=== PATIENT | female | born 1940 | race Caucasian/White ===

== ENCOUNTER 2025-03-18 02:15 | Emergency (ER) | payer MEDICARE, BC ==
[~2025-03-18] VITALS: Ht 157.5 cm; Wt 60.0 kg
[2025-03-18] MEDS ORDERED: AMLODIPINE BESY10 MG PO (02:33)
[2025-03-18] MEDS ORDERED: LOSARTAN POTASS25 MG PO (02:33)
[2025-03-18] MEDS ORDERED: LOVASTATIN40 MG PO (02:33)
[2025-03-18] MEDS ORDERED: HYDROXYCHLOROQ200 MG PO (02:34)
[2025-03-18] MEDS ORDERED: ALENDRONATE SOD70 MG PO (02:34)
[2025-03-18] MEDS ORDERED: METHOTREXATE2.5 MG PO (02:34)
[2025-03-18] MEDS ORDERED: POTASSIUM CHLO10 MEQ PO (02:34)
[2025-03-18] MEDS ORDERED: FOLIC ACID1 MG PO (02:34)
[2025-03-18] MEDS ORDERED: DEXAMETHASONE SOD PHOS 10 MG/ML VIAL IV ONE (02:45)
[2025-03-18 02:52] LABS: BASOPHILS 0.4 % (0.1-1.2); EOSINOPHILS 0.6 % (0.7-5.8); LYMPHOCYTES 4.9 % (19.3-51.7); MCH 30.7 PG (25.6-32.2); MCHC 33.0 g/dL (32.2-35.5); MCV 93.1 fL (79.4-94.8); MONOCYTES 4.9 % (4.7-12.5); NEUTROPHILS 88.8 % (34.0-71.1); RBC 4.23 M/uL (3.93-5.22)
[2025-03-18 03:07] LABS: ALT (SGPT) 14.0 U/L (14-59); AST (SGOT) 25.0 U/L (15-37); GLOMERULAR FILTRATION RATE,EST 34.0 mL/min (>60); PROTEIN, TOTAL 7.3 g/dL (6.4-8.2); UREA NITROGEN 20.0 mg/dL (7-18)
[2025-03-18] MEDS ORDERED: POTASSIUM CHLORIDE 10 MEQ TABCR PO ONE (03:15)
[2025-03-18] MEDS ORDERED: METHYLPREDNISOLO4 M1 PO (03:28)
[2025-03-18] MEDS ORDERED: LIDODERM1 EACH TOP ×2 (03:28→03:29)
[2025-03-18] MEDS ORDERED: LIDOCAINE HCL 4% 1 EACH PATCH TD ONE (03:30)
[2025-03-18] MEDS ORDERED: CYCLOBENZAPRINE HCL 10 MG HOME.PACK PO ONE (03:30)
[2025-03-18] MEDS ORDERED: ONDANSETRON 4 MG HOME.PACK SL ONE (03:30)
[2025-03-18 03:44] VITALS: BP 115/94
== END 2025-03-18 03:44 | disposition home or self-care (01) ==
LOC: ED 02:15
PROVIDERS: Internal Medicine
DX: S16.1XXA Strain of muscle, fascia and tendon at neck level, initial encounter (principal); I10 Essential (primary) hypertension; Z88.5 Allergy status to narcotic agent; Z79.899 Other long term (current) drug therapy; X58.XXXA Exposure to other specified factors, initial encounter
CPT/HCPCS: 36415; 80053; 85025; 86140; 96374; 96375; 99283-25; A9270; J1100; J2405

== ENCOUNTER 2025-03-25 18:03 | Emergency (ER) | payer MEDICARE, BC ==
[~2025-03-25] VITALS: Ht 157.5 cm; Wt 60.0 kg
[~2025-03-25 18:03] MED LIST: ALENDRONATE SOD70 MG PO; AMLODIPINE BESY10 MG PO; FOLIC ACID1 MG PO; HYDROXYCHLOROQ200 MG PO; LIDODERM1 EACH TOP; LOSARTAN POTASS25 MG PO; LOVASTATIN40 MG PO; METHOTREXATE2.5 MG PO; METHYLPREDNISOLO4 M1 PO; POTASSIUM CHLO10 MEQ PO
--- OUTSIDE RECORDS SUMMARY | 2025-03-25 18:11 | XMS ---
PreManage Notification: BALAJI CLARK Security Mine Foreman Events No recent Security Events currently on file CRITERIA MET - [facility] - 2 Visits in 30 Days CARE PROVIDERS There are no care providers on record at this time. Vanessa has no Care Guidelines for this patient. Aakash VISIT COUNT (12 MO.) 2 [facility] TOTAL 2 NOTE: Visits indicate total known visits. ED/C VISIT TRACKING (12 MO.) [facility] [place] [facility] COMPLAINT: - NAUSEA, PAIN IN SHOULDER 03/18/2025 02:16 [facility] [place] TYPE: Emergency COMPLAINT: - SHOULDER PAIN DIAGNOSES: - Allergy status to narcotic agent - Cervicalgia - Essential (primary) hypertension - Exposure to other specified factors, initial encounter - Other equipment operator intermodal yard (current) drug therapy - Strain of muscle, fascia and tendon at neck level, initial encounter INPATIENT VISIT TRACKING (12 MO.) No inpatient visits to display in this time frame [email or web address]
[2025-03-25] MEDS ORDERED: ONDANSETRON 4 MG TAB ODT SL ONE (19:15)
[2025-03-25] MEDS ORDERED: MORPHINE SULFATE 4 MG/ML VIAL IV ONE (20:15)
[2025-03-25 20:45] LABS: BASOPHILS 0.3 % (0.1-1.2); EOSINOPHILS 1.1 % (0.7-5.8); LYMPHOCYTES 9.7 % (19.3-51.7); MCH 30.4 PG (25.6-32.2); MCHC 33.5 g/dL (32.2-35.5); MCV 90.8 fL (79.4-94.8); MONOCYTES 5.8 % (4.7-12.5); NEUTROPHILS 82.6 % (34.0-71.1); RBC 4.01 M/uL (3.93-5.22)
[2025-03-25 21:01] LABS: ALT (SGPT) 19.0 U/L (14-59); AST (SGOT) 13.0 U/L (15-37); GLOMERULAR FILTRATION RATE,EST 30.0 mL/min (>60); PROTEIN, TOTAL 7.0 g/dL (6.4-8.2); UREA NITROGEN 34.0 mg/dL (7-18)
[2025-03-25] MEDS ORDERED: TRAMADOL HCL50 MG PO (21:23)
[2025-03-25] MEDS ORDERED: ONDANSETRON ODT4 MG PO (21:23)
[2025-03-25] MEDS ORDERED: CELEBREX100 MG PO (21:23)
[2025-03-25] MEDS ORDERED: TRAMADOL HCL 50 MG HOME.PACK PO ONE (21:30)
[2025-03-25] MEDS ORDERED: ONDANSETRON 4 MG HOME.PACK SL ONE (21:30)
[2025-03-25 21:40] VITALS: BP 107/67
== END 2025-03-25 21:40 | disposition home or self-care (01) ==
LOC: ED 18:03
PROVIDERS: Family Medicine
DX: M75.101 Unspecified rotator cuff tear or rupture of right shoulder, not specified as traumatic (principal); M19.011 Primary osteoarthritis, right shoulder; R11.10 Vomiting, unspecified; E78.00 Pure hypercholesterolemia, unspecified; I10 Essential (primary) hypertension; Z79.899 Other long term (current) drug therapy; Z88.5 Allergy status to narcotic agent
CPT/HCPCS: 36415; 73030; 80053; 85025; 96374; 99283-25; A9270; J2270

== ENCOUNTER 2025-03-28 03:13 | Emergency (ER) | payer MEDICARE, BC ==
[~2025-03-28] VITALS: Ht 157.5 cm; Wt 63.0 kg
[~2025-03-28 03:13] MED LIST changes: +CELEBREX100 MG PO; +ONDANSETRON ODT4 MG PO; +TRAMADOL HCL50 MG PO
--- OUTSIDE RECORDS SUMMARY | 2025-03-28 03:21 | XMS ---
PreManage Notification: BALAJI CLARK Security Electrical Cad Designer Events No recent Security Events currently on file CRITERIA MET - [facility] - 2 Visits in 30 Days CARE PROVIDERS There are no care providers on record at this time. Vanessa has no Care Guidelines for this patient. [facility] MO[facility] NOTE: Visits indicate total known visits. ED/C VISIT TRACKING (12 MO.) 03/28/2025 03:15 [facility] [place] TYPE: Emergency COMPLAINT: - SHOULDER ISSUE 03/25/2025 18:05 [facility] [place] TYPE: Emergency COMPLAINT: - NAUSEA, PAIN IN SHOULDER 03/18/2025 02:16 [facility] [place] TYPE: Emergency COMPLAINT: - SHOULDER PAIN DIAGNOSES: - Allergy status to narcotic agent - Cervicalgia - Essential (primary) hypertension - Exposure to other specified factors, initial encounter - Other prison (current) drug therapy - Strain of muscle, fascia and tendon at neck level, initial encounter INPATIENT VISIT TRACKING (12 MO.) No inpatient visits to display in this time frame [email or web address]
[2025-03-28] MEDS ORDERED: methylPREDNISolone 4 MG HOME.PACK PO ONE (05:15)
[2025-03-28] MEDS ORDERED: HYDROCODONE/ACETA 5/325 TAB PO ONE (05:15)
[2025-03-28] MEDS ORDERED: HYDROCODONE BIT/ACETAMINOPHEN 5/325 MG 1 TAB HOME.PACK PO PRN (05:15)
[2025-03-28] MEDS ORDERED: HYDROCODON-ACE1 EA10 PO (05:19)
[2025-03-28 05:48] VITALS: BP 116/68
== END 2025-03-28 06:00 | disposition home or self-care (01) ==
LOC: ED 03:13
DX: M75.31 Calcific tendinitis of right shoulder (principal); I10 Essential (primary) hypertension; E78.00 Pure hypercholesterolemia, unspecified; Z79.899 Other long term (current) drug therapy; Z88.5 Allergy status to narcotic agent
CPT/HCPCS: 99282; A9270

== ENCOUNTER 2025-03-31 13:09 | Inpatient (IN) | payer MEDICARE, BC ==
[~2025-03-31] VITALS: Ht 157.5 cm; Wt 61.2 kg
[~2025-03-31 13:09] MED LIST changes: +HYDROCODON-ACE1 EA10 PO
--- OUTSIDE RECORDS SUMMARY | 2025-03-31 13:15 | XMS ---
PreManage Notification: BALAJI CLARK Security Biology Intern Events No recent Security Events currently on file CRITERIA MET - [facility] - 2 Visits in 30 Days CARE PROVIDERS There are no care providers on record at this time. Vanessa has no Care Guidelines for this patient. Aakash VISIT COUNT (12 MO.) 4 [facility] [place] [facility] TOTAL 4 NOTE: Visits indicate total known visits. ED/C VISIT TRACKING (12 MO.) 03/31/2025 13:[address] [facility] [place] TYPE: Emergency COMPLAINT: - WEAKNESS 03/28/2025 03:15 [facility] [place] TYPE: Emergency COMPLAINT: - SHOULDER ISSUE DIAGNOSES: - Allergy status to narcotic agent - Calcific tendinitis of right shoulder - Essential (primary) hypertension - Other half-way (current) drug therapy - Pain in right shoulder - Pure hypercholesterolemia, unspecified 03/25/2025 18:05 [facility] [place] TYPE: Emergency COMPLAINT: - NAUSEA, PAIN IN SHOULDER DIAGNOSES: - Allergy status to narcotic agent - Essential (primary) hypertension - Other middle or intermediate school principal (current) drug therapy - Pain in right shoulder - Primary osteoarthritis, right shoulder - Pure hypercholesterolemia, unspecified - Unspecified rotator cuff tear or rupture of right shoulder, not specified as traumatic - Vomiting, unspecified 03/18/2025 02:16 [facility] [place] TYPE: Emergency COMPLAINT: - SHOULDER PAIN DIAGNOSES: - Allergy status to narcotic agent - Cervicalgia - Essential (primary) hypertension - Exposure to other specified factors, initial encounter - Other middle or intermediate school principal (current) drug therapy - Strain of muscle, fascia and tendon at neck level, initial encounter INPATIENT VISIT TRACKING (12 MO.) No inpatient visits to display in this time frame [email or web address]
[2025-03-31] MEDS ORDERED: SODIUM CHLORIDE 0.9% 500 ML IV PRN (13:30)
[2025-03-31 13:39] LABS: BASOPHILS 0.1 % (0.1-1.2); EOSINOPHILS 0 % (0.7-5.8); LYMPHOCYTES 3.0 % (19.3-51.7); MCH 30.5 PG (25.6-32.2); MCHC 31.4 g/dL (32.2-35.5); MCV 97.0 fL (79.4-94.8); MONOCYTES 4.1 % (4.7-12.5); NEUTROPHILS 92.0 % (34.0-71.1); RBC 2.00 M/uL (3.93-5.22)
[2025-03-31 13:58] LABS: ALT (SGPT) 16.0 U/L (14-59); AST (SGOT) 17.0 U/L (15-37); GLOMERULAR FILTRATION RATE,EST 38.0 mL/min (>60); PROTEIN, TOTAL 5.1 g/dL (6.4-8.2); UREA NITROGEN 58.0 mg/dL (7-18)
[2025-03-31 13:59] LABS: INR 1.12 (0.80-1.30); PROTIME 13.7 Sec (11.2-14.2)
[2025-03-31] MEDS ORDERED: PANTOPRAZOLE SODIUM 40 MG/10 ML VIAL IV ONE (14:00)
[2025-03-31 14:29] LABS: ABO A; ANTIBODY SCREEN NEGATIVE; RH POSITIVE
[2025-03-31 15:19] LABS: ABO A; RH POSITIVE
[2025-03-31 15:20] LABS: IS CROSSMATCH COMPATIBLE
[2025-03-31] MEDS ORDERED: LORazepam 2 MG/ML VIAL IV ONE (16:15)
[2025-03-31] MEDS ORDERED: ACETAMINOPHEN 325 MG TAB PO PRN (17:00)
[2025-03-31] MEDS ORDERED: LACTATED RINGER'S 1,000 ML IV SCH (17:00)
--- NOTE | 2025-03-31 18:00 | NUR ---
REPORT RECIEVED FROM OLEGARIO RUSS IN THE ER. PATIENT TRANSPORTED TO ROOM 109 BY THIS RN. PATIENT DAUGHTER, DARLEEN AT BEDSIDE. DARLEEN TOOK PATIENT'S BELONGINGS HOME WITH HER. PATIENT HAS HER CELL PHONE AND CELL PHONE DAY TRADER. PATIENT TRANSFERED SELF FROM STRETCHER TO HOSPITAL BED BY SLIDING OVER.
[2025-03-31 18:08] VITALS: BP 145/63
--- NOTE | 2025-03-31 18:30 | NUR ---
BLOOD BAG 2 OF 4 STARTED AT THIS TIME IN PATIENT RAC IV. BLOOD BAG VERIFIED WITH OLEGARIO MCMILLANDRUM DYEING MACHINE OPERATOR. 1845 15 MIN VITALS SIGNS TAKEN AND ARE STABLE. NO SIGNS OR SYMPTOMS OF REACTION. ALL DOCUMENTED UNDER "BLOOD ADMINISTRATION". BEFORE LEAVING THE ROOM, THIS RN EDUCATED PATIENT TO NOTIFY STAFF IF PATIENT STARTS EXPERIENCING SOB, ITCHY, NEW PAIN, OR CHILL. PATIENT GAVE VERBAL UNDERSTANDING. PATIENT WITHOUT FURTHER NEEDS AT THIS TIME. CALL LIGHT AND PERSONAL BELONGINGS ARE WITHIN REACH.
[2025-03-31 19:30] VITALS: BP 121/87
[2025-03-31 20:37] VITALS: BP 120/59
--- NOTE | 2025-03-31 20:52 | NUR ---
PATIENT IN BED, EYES OPEN, CHEST RISE EQUAL AND UNALBORED. ASSESSMENT COMPLETED. PATIENT DENIES CONCERNS AT THIS TIME. IV FLUIDS RUNNING WITHOUT COMPLICATION. PATIENT BELONGINGS AND CALL COURTNEY GRIDER, SCHEDULED MEDICATIONS ADMINISTERED, PATIENT TOLERATED WELL.
[2025-03-31 20:58] VITALS: BP 120/59
[2025-03-31] MEDS ORDERED: PANTOPRAZOLE SODIUM 40 MG/10 ML VIAL IV SCH (21:00)
[2025-03-31] MEDS ORDERED: LIDOCAINE HCL 4% 1 EACH PATCH TD ONE (21:15)
[2025-03-31] MEDS ORDERED: MORPHINE SULFATE 4 MG/ML VIAL IV PRN (21:15)
[2025-03-31 22:08] LABS: BASOPHILS 0.1 % (0.1-1.2); EOSINOPHILS 0.2 % (0.7-5.8); LYMPHOCYTES 4.5 % (19.3-51.7); MCH 30.1 PG (25.6-32.2); MCHC 33.3 g/dL (32.2-35.5); MCV 90.2 fL (79.4-94.8); MONOCYTES 3.2 % (4.7-12.5); NEUTROPHILS 91.3 % (34.0-71.1); RBC 2.86 M/uL (3.93-5.22)
--- NOTE | 2025-03-31 22:26 | NUR ---
PATIENT IN BED, EYES OPEN, CHEST RISE EQUAL AND UNLABORED. PATIENT REPORTS 8/10 PAIN, PRN MEDICATIONS ADMINISTERED, PATIENT TOLERATED WELL. PATIENT DENIES FURTHER CONCERNS AT THIS TIME. CALL LIGHT AND PERSONAL BELONGINGS IN REACH.
[2025-04-01] VITALS (18 sets, daily range): BP systolic 111–168; BP diastolic 49–67
--- NOTE | 2025-04-01 00:18 | NUR ---
PATIENT IN BED, EYES OPEN, CHEST RISE EQUAL AND UNLABORED. PATIENT REPORTS FEELING WARM. TEMPERATURE TAKEN AND WNL. PROVIDED PATIENT WITH FAN, PATIENT DENIES NEEDING TO LOWER TEMPERATURE IN ROOM. PATIENT REPORTS 6/10 ABDOMINAL PAIN. ASSISTED PATIENT TO REPOSITION. PATIENT DENIES FURTHER CONCERNS AT THIS TIME. CALL LIGHT AND PERSONAL BELONGINGS IN REACH.
--- NOTE | 2025-04-01 01:38 | NUR ---
PATIENT IN BED, EYES OPEN, CHEST RISE EQUAL AND UNLABORED. SCDS IN PLACE, IV FLUID INFUSING WITHOUT DIFFICULTY. VITAL SIGNS AND ASSESSMENT COMPLETED. PATIENT DENIES CONCERNS AT THIS TIME. CALL LIGHT AND PERSONAL BELONGINGS IN PLACE.
--- NOTE | 2025-04-01 02:38 | NUR ---
PATIENT IN BED, EYES OPEN, CHEST RISE EQUAL AND UNLABORED. PATIENT DENIES CONCERNS AT THIS TIME. IV FLUIDS INFUSING WITHOUT DIFFICULTY. CPOX IN PLACE. SCDS IN PLACE. CALL LIGHT AND PERSONAL BELONGINGS IN REACH.
--- NOTE | 2025-04-01 04:03 | NUR ---
PATIENT IN BED WITH HOB RAISED, EYES OPEN, CHEST RISE EQUAL AND UNLABORED. CPOX AND SCDS IN PLACE. PATIENT DENIES CONCERNS AT THIS TIME. IV FLUIDS INFUSING WITHOUT DIFFICULTY. PERSONAL BELONGINGS AND CALL LIGHT IN REACH.
--- NOTE | 2025-04-01 06:09 | NUR ---
PATIENT IN BED WITH HOB RAISED, EYES OPEN, CHEST RISE EQUAL AND UNLABORED. SCDS AND CPOX IN PLACE. IV INFUSING WITHOUT DIFFICULTY. VITAL SIGNS COMPLETED. PATIENT DENIES CONCERNS AT THIS TIME. CALL LIGHT AND PERSONAL BELONGINGS IN REACH.
[2025-04-01 06:16] LABS: ALT (SGPT) 12.0 U/L (14-59); AST (SGOT) 16.0 U/L (15-37); GLOMERULAR FILTRATION RATE,EST 47.0 mL/min (>60); PHOSPHORUS, INORGANIC 2.2 mg/dL (2.5-4.9); PROTEIN, TOTAL 5.1 g/dL (6.4-8.2); UREA NITROGEN 46.0 mg/dL (7-18)
[2025-04-01 06:23] LABS: BASOPHILS 0.1 % (0.1-1.2); EOSINOPHILS 0.3 % (0.7-5.8); LYMPHOCYTES 4.7 % (19.3-51.7); MCH 30.5 PG (25.6-32.2); MCHC 34.7 g/dL (32.2-35.5); MCV 87.7 fL (79.4-94.8); MONOCYTES 3.9 % (4.7-12.5); NEUTROPHILS 90.4 % (34.0-71.1); RBC 2.69 M/uL (3.93-5.22)
--- NOTE | 2025-04-01 07:22 | NUR ---
REPORT RECIEVED FROM OLEGARIO MARTINEZ AND OLEGARIO FAITH. PATIENT SITTING UP IN BED REPORTING NAUSEA. PRN DOSE OF ZOFRAN GIVEN. IV IN LAC FLUSHED WITH 10ML OF NS, DRESSING IS INTACT. MEDS GIVEN AND FLUSHED WITH ANOTHER 10ML OF NS, IV IS SALINE LOCKED. IV TO RAC INFUSING LR CONTINUOUS PER ORDER. PATIENT DENIES ANY PAIN AT THIS TIME. CALL LIGHT AND PERSONAL BELONGINGS ARE WITHIN REACH. PATIENT IS 97% ON ROOM AIR, CPOX AT BEDSIDE.
--- NOTE | 2025-04-01 08:12 | NUR ---
PATIENT IN CHAIR AT THIS TIME. ROAD CUTTER CHARTED HOURLY ROUNDS, ROAD CUTTER CHANGED PATIENTS LINENS, AND ROAD CUTTER CHANGED PATIENTS PUREWICK. ROAD CUTTER MOVED PATIENT FROM BED TO CHAIR. CALL LIGHT WITHIN REACH, NO FURTHER NEEDS AT THIS TIME.
--- NOTE | 2025-04-01 08:51 | NUR ---
PATIENT SITTING UP IN HER CHAIR. PATIENT MEDICATED PER EMAR. PATIENT WITHOUT FURTHER NEEDS AT THIS TIME. CALL LIGHT AND PERSONAL BELONGINGS ARE WITHIN REACH.
[2025-04-01] MEDS ORDERED: LIDOCAINE PATCH REMOVAL 1 EA TD SCH ×2 (09:00→21:00)
[2025-04-01] MEDS ORDERED: POTASSIUM PHOSPHATE 30 MMOL in DEXTROSE 5% 500 ML IV ONE (09:00)
--- NOTE | 2025-04-01 09:10 | NUR ---
PATIENT WAS IN HER CHAIR AT THIS TIME, FOREST FIRE LOOKOUT ASSISTED PATIENT BACK TO HER BED, GOT HER SOME MORE MOUTH SWABS. CALL LIGHT WITH IN REACH AND NOTHING ELSE NEEDED AT THIS TIME.
--- NOTE | 2025-04-01 09:23 | NUR ---
PATIENT IS IN BED AT THIS TIME, PULL OVER MACHINE OPERATOR CHARTED VITALS AND I&O'S, CALL LIGHT WITHIN REACH AND NOTHING ELSE NEEDED AT THIS TIME.
--- NOTE | 2025-04-01 09:55 | NUR ---
PATIENT MEDICATED PER EMAR. PATIENT RESTING IN BED WITH HER DAUGHTER AT BEDSIDE. PATIENT REPORTS PAIN THAT "COMES AND GOES". IV IN RAC AND LAC FLUSHED WITH 10ML OF NS DRESSING ARE INTACT. IV FLUIDS INFUSING PER ORDER. PATIENT AND FAMILY WITHOUT FURTHER NEEDS AT THIS TIME. CALL LIGHT AND PERSONAL BELONGINGS ARE WITHIN REACH. PATIENT IS 100% ON ROOM AIR, CPOX AT BEDSIDE.
--- NOTE | 2025-04-01 10:00 | NUR ---
OR TRUDY COTA CALLED TO VERIFY THAT PT DOES NOT REQUIRE CXR OR EKG PRIOR TO PROCEDURE.
--- NOTE | 2025-04-01 10:03 | NUR ---
UR CLINICAL REVIEW: 2 [facility], MEETS INPT FOR GI BLEED IV PPI, NPO, BLOOD TRANSFUSION, ENDOSCOPY TO BE DONE, IV FLUIDS MEDICARE INPT 03/31/2025 @ 1700 ORDER MATCHES REG NO AUTH REQUIRED PER MEDICARE RULES PLAN TO DC TO HOME WHEN MEDICALLY STABLE.
--- NOTE | 2025-04-01 10:18 | NUR ---
PATIENT REPORTS PAIN WITH K+ INFUSION. THIS RN TALKED WITH ANEL IN PHARMACY AND HE STATES THAT PER POLICY, WE CANNOT ADD LIDOCAINE ONCE A MEDICATION HAS STARTED. ANEL ALSO STATES TO RUN INFUSION WITH LR. PATIENT TOLERATING OKAY AT THIS TIME. PATIENT ALSO PULLED ON RAC IV ON ACCIDENT, IV NO LONGER PATENT. IV TO RAC REMOVED AT THIS TIME. CATH TIP INTACT. LR AND K+ INFUSING PER ORDER IN PATIENTS LAC. STRAIGHT TUBING HANGING ON BED FOR SURGERY. PATIENT WITH FAMILY AT BEDSIDE. PATIENT AND FAMILY WITHOUT FURTHER NEEDS AT THIS TIME. CALL LIGHT AND PERSONAL BELONGINGS ARE WITHIN REACH.
[2025-04-01] MEDS ORDERED: LO-DOSE ASPIRIN81 MG PO (10:32)
--- NOTE | 2025-04-01 10:32 | NUR ---
MED REC COMPLETE
--- NOTE | 2025-04-01 11:07 | NUR ---
PATIENT SITTING UP IN BED WITH HER FAMILY AT BEDSIDE. PATIENT WITHOUT ANY NEEDS AT THIS TIME. CALL LIGHT AND PERSONAL BELONGINGS ARE WITHIN REACH.
[2025-04-01] MEDS ORDERED: PHARMACY RENAL DOSE ADJUSTMENT 1 DOSE MISC PO SCH (12:00)
--- NOTE | 2025-04-01 12:05 | NUR ---
PATIENT OFF THE FLOOR FOR PROCEDURE.
[2025-04-01] MEDS ORDERED: LIDOCAINE HCL 2% 5 ML SDV ONE (12:15)
[2025-04-01] MEDS ORDERED: PHENYLEPHRINE HCL 10 MG/ML VIAL ONE (12:33)
[2025-04-01] MEDS ORDERED: SODIUM CHLORIDE 0.9% 20 ML IV ONE (12:33)
--- NOTE | 2025-04-01 13:35 | NUR ---
REPORT RECIEVED FROM OLEGARIO BAUTISTA FROM PACU. PATIENT SELF TRANSFERED FROM STRETCHED TO HOSPITAL BED. VITAL SIGNS TAKEN AND ARE STABLE. PATIENT ATTACHED TO CPOX AND IS 100% ON ROOM AIR. PATIENT DENIES ANY NAUSEA, BUT DID REPORT 8/10 ABDOMINAL PAIN. PRN DOSE OF MORPHINE GIVEN. PATIENT REQUESTING 7UP, LET PATIENT KNOW THERE AREN'T ANY NEW DIET ORDERS AND SHE IS STILL NPO, BUT WILL UPDATE PATIENT ONCE NEW ORDERS ARE RECIEVED. PATIENT WITHOUT FURTHER NEEDS AT THIS TIME. CALL LIGHT AND PERSONAL BELONGINGS ARE WITHIN REACH.
--- NOTE | 2025-04-01 14:07 | NUR ---
DR PETERS AT BEDSIDE.
--- NOTE | 2025-04-01 14:15 | NUR ---
PATIENT RESTING IN BED WITH HER EYES CLOSED. PATIENT EASILY AROUSABLE WHEN THIS RN WALKED IN ROOM. WARM BLANKET PROVIDED. PATIENT REPORTS PAIN "IS GETTING BETTER" AND DENIES ANY NAUSEA. PATIENT WITHOUT FURTHER NEEDS AT THIS TIME. CALL LIGHT AND PERSONAL BELONGINGS ARE WITHIN REACH. PATIENT IS 99% ON ROOM AIR, CPOX AT BEDSIDE.
--- NOTE | 2025-04-01 15:34 | NUR ---
04/01/25 1534 Michelle Gray 1301- PT PRESENTS TO PACU, DROWSY, LR HANGING TO LAC IV. ABD ROUND, SOFT. BREATHING EVEN AND NON LABORED, ON ROOM AIR. ALL MONITORS IN PLACE. PT AWAKE OFF AND ON. 1310- LAC IV FLUSHED, SLOW RUNNING AND POSITIONAL. 1320- PT DROWSY, DENIES PAIN, NO SIGNS OF DISTRESS. 1330- LR MOVED TO RFA IV, PLAN TO TAKE PT BACK TO MED/SURG. 1335- PT TAKEN TO ROOM, REPORT TO HILDA MELVIN AT BEDSIDE. PT MOVED FROM STRETCHER TO BED ON OWN. CARE OF PT TURNED OVER AT THIS TIME.
--- NOTE | 2025-04-01 15:59 | NUR ---
PATIENT RESTING IN BED WITH HER EYES CLOSED. EVEN AND UNLABORED RESPIRATIONS NOTED. PATIENT IS 99% ON ROOM AIR, CPOX AT BEDSIDE. CALL LIGHT AND PERSONAL BELONGINGS ARE WITHIN REACH.
--- NOTE | 2025-04-01 16:06 | NUR ---
PATIENT IN BED AT THIS TIME. YOLK SPRAY DRIER CHARTED HOURLY ROUNDS. CALL LIGHT WITHIN REACH, NO FURTHER NEEDS.
--- NOTE | 2025-04-01 16:34 | NUR ---
PATIENT IN BED AT THIS TIME. THIS CLIENT SERVICES SPECIALIST OFFERED PATIENT SHOWER OR BED BATH. PATIENT REFUSED BOTH BUT WOULD LIKE ONE TOMORROW. CLIENT SERVICES SPECIALIST AGREED. CALL LIGHT WITHIN REACH, NO FURTHER NEEDS.
--- NOTE | 2025-04-01 17:15 | NUR ---
OLEGARIO OCONNELL IN ROOM ASSISTING
--- NOTE | 2025-04-01 17:31 | NUR ---
PATIENT IN BED AT THIS TIME. STOREPERSON CHARTED VITALS AND I&O'S. PATIENT COMPLAINS ON NAUSEA, RN SUZIE NOTIFIED. CALL LIGHT WITHIN REACH, NO FURTHER NEEDS.
--- NOTE | 2025-04-01 18:50 | NUR ---
IN ROOM TO ASSESS PATIENT DUE TO HER STATING SHE DOESN'T FEEL WELL AND CONTINUING TO HAVE NAUSEA. PATIENT APPEARING SLIGHTLY MORE PALE THAN WHEN SHE CAME BACK FROM HER PROCEDURE. VITAL SIGNS TAKEN AND PATIENT'S BLOOD PRESSURE WAS UP TO 168/60, HEART RATE OF 95, RESPIRATIONS UP TO 22/MIN, OXYGEN AT 96% ON ROOM AIR, AND TEMP WAS UP TO 99.1. PATIENT OBSERVED TO BE SHAKING AND STATING SHE IS COLD AND DRY HEAVING. THIS RN TALKED WITH CHARGE (OLEGARIO CASTILLO) AND WAS ADVISED TO CALL THE SURGEON DUE TO PATIENT HAVING PROCEDURE TODAY. [address] WINKLER AND UPDATED ON PATIENT STATUS. MD INTERUPTED THIS RN AND ASKED "WHY ARE YOU CALLING ME? THERE'S ANOTHER DOCTOR ON THIS PATIENT'S LIST". THIS RN EXPLAINED TO DR WINKLER WE NOTIFIED HER DUE TO PATIENT'S RECENT PROCEDURE. MD RESPONDS WITH "I DON'T CARE. IS SHE HEMODYNAMICALLY UNSTABLE? IS SHE UNSTABLE? I ONLY CARE IF SHE'S UNSTABLE. OTHERWISE CALL THE OTHER DOCTOR". NO FURTHER ORDERS FROM DR WINKLER, CALL ENDED. 1858 DR PETERS UPDATED ON PATIENT STATUS. STATES HE WILL ADD A STAT CBC AND ADD COMPAZINE TO PATIENT MEDICATION LIST WELL COME AND SEE THE PATIENT. MD WITH NO FURTHER ORDERS AT THIS TIME. CALL ENDED.
[2025-04-01] MEDS ORDERED: PROCHLORPERAZINE EDISYLATE 10 MG/2 ML VIAL IV PRN (19:00)
--- NOTE | 2025-04-01 19:12 | NUR ---
PATIENT MEDICATED PER EMAR. DR PETERS AT BEDSIDE.
[2025-04-01 19:26] LABS: BASOPHILS 0.1 % (0.1-1.2); EOSINOPHILS 0.4 % (0.7-5.8); LYMPHOCYTES 3.1 % (19.3-51.7); MCH 30.4 PG (25.6-32.2); MCHC 33.9 g/dL (32.2-35.5); MCV 89.6 fL (79.4-94.8); MONOCYTES 3.8 % (4.7-12.5); NEUTROPHILS 92.0 % (34.0-71.1); RBC 2.70 M/uL (3.93-5.22)
--- NOTE | 2025-04-01 19:52 | NUR ---
REPORT RECEIVED FROM OLEGARIO LARSEN. PATIENT IN BED WITH HOB RAISED, EYES OPEN, CHEST RISE EQUAL AND UNLABORED. PERSONAL BELONGINGS AND CALL LIGHT IN REACH.
--- NOTE | 2025-04-01 20:17 | NUR ---
RESEARCH PROFESSOR OF BIOSTATISTICS OBTAINED VITALS AND OUTPUT. PT STATES NO NEEDS AT THIS TIME. CALL LIGHT WITHIN REACH AND RN IN ROOM.
--- NOTE | 2025-04-01 20:44 | NUR ---
PATIENT IN BED WITH HOB RAISED, EYES OPEN, CHEST RISE EQUAL AND UNLABORED. PATIENT REFUSED SCDS, EDUCATION PROVIDED. CPOX IN PLACE. OFFERED PATIENT TO SIT IN CHAIR, PATIENT REFUSES AT THIS TIME. JASMEET CARE COMPLETED AND PUREWICK CHANGED. ASSESSMENT COMPLETED. PATIENT DENIES CONCERNS AT THIS TIME. PERSONAL BELONGINGS AND CALL LIGHT IN REACH.
--- NOTE | 2025-04-01 22:07 | NUR ---
PATIENT IN BED, EYES CLOSED, CHEST RISE EQUAL AND UNLABORED, CPOX IN PLACE, IV FLUIDS INFUSING WITHOUT DIFFICULTY. PERSONAL BELONGINGS AND CALL LIGHT IN REACH. SCDS IN PLACE. BED ALARM ACTIVE. NO APPARENT NEEDS NOTED AT THIS TIME.
[2025-04-01] MEDS ORDERED: DEXTROSE 5% - LACTATED RINGERS 1,000 ML IV SCH (23:00)
--- NOTE | 2025-04-01 23:54 | NUR ---
PATIENT IN BED WITH HOB RAISED, EYES OPEN, CHEST RISE EQUAL AND UNLABORED. PATIENT REPORTS 8/10 ABDOMINAL PAIN AND MILD NAUSEA. PRN MEDICATIONS ADMINISTERED ORDERED, PATIENT TOLERATED WELL. IV FLUIDS CHANGED PER MD ORDER, SEE EMAR. NEW BAG AND NEW LINE FOR FLUIDS. INCENTIVE SPIROMETER PLACED AT BEDSIDE, PATIENT TEACHING PROVIDED FOR HOW AND WHEN TO USE. PATIENT VERBALIZED UNDERSTANDING AND DEMONSTRATED PROPER IS USE. CPOX IN PLACE, PATIENT CONTINUES TO REFUSE SCDS, PATIENT TEACHING PROVIDED. PATIENT DENIES FURTHER CONCERNS AT THIS TIME. PERSONAL BELONGINGS AND CALL LIGHT IN REACH.
[2025-04-02] VITALS (12 sets, daily range): BP systolic 123–152; BP diastolic 47–90
--- NOTE | 2025-04-02 01:48 | NUR ---
PATIENT IN BED, EYES CLOSED, CHEST RISE EQUAL AND UNLABORED. IS, PERSONAL BELONGINGS, AND CALL LIGHT IN REACH OF PATIENT. PATIENT CONTINUES TO REFUSED USE OF SCDS, CPOX IN PLACE. IV FLUID INFUSING WITHOUT DIFFICULTY. VITAL SIGNS COMPLETED. NO APPARENT NEEDS NOTED AT THIS TIME.
--- NOTE | 2025-04-02 03:23 | NUR ---
PATIENT IN BED WITH HOB RAISED, EYES OPEN, CEHST RISE EQUAL AND UNLABORED. PATIENT DENIES NAUSEA DURRING ASSESSMENT, NOW REPORTS NAUSEA AND BEGINS DRY HEAVING. PATIENT NOW REPORTS 10/10 PAIN. PRN MEDICATIONS ADMINISTERED ORDERED, DRY HEAVING STOPS LESS THAN 1 MINUTE AFTER MEDICATION ADMINISTRATION. PATIENT DENIES FURTHER CONCERNS AT THIS TIME. PATIENT CONTINUES TO REFUSE SCDS, EDUCATION PROVIDED. IS, CALL IGHT, AND PERSONAL BELONGINGS WITHIN REACH, CPOX IN PLACE. PATIENT DENIES FURTHER CONCERNS AT THIS TIME.
[2025-04-02 05:11] LABS: BASOPHILS 0.1 % (0.1-1.2); EOSINOPHILS 0.1 % (0.7-5.8); LYMPHOCYTES 3.0 % (19.3-51.7); MCH 29.8 PG (25.6-32.2); MCHC 32.8 g/dL (32.2-35.5); MCV 90.8 fL (79.4-94.8); MONOCYTES 4.3 % (4.7-12.5); NEUTROPHILS 92.1 % (34.0-71.1); RBC 2.72 M/uL (3.93-5.22)
[2025-04-02 05:32] LABS: ALT (SGPT) 15.0 U/L (14-59); AST (SGOT) 15.0 U/L (15-37); GLOMERULAR FILTRATION RATE,EST 44.0 mL/min (>60); PHOSPHORUS, INORGANIC 3.5 mg/dL (2.5-4.9); PROTEIN, TOTAL 5.0 g/dL (6.4-8.2); UREA NITROGEN 35.0 mg/dL (7-18)
--- NOTE | 2025-04-02 05:36 | NUR ---
PATIENT IN BED, EYES OPEN, CHEST RISE EQUAL AND UNLABORED. PATIENT REFUSES SCDS, EDUCATION PROVIDED. IS, PERSONAL BELONGINGS AND CALL LIGHT IN REACH OF PATIENT. VITAL SIGNS COMPLETED. IV FLUID INFUSING WITHOUT DIFFICULTY. PATIENT DENIES CONCERNS AT THIS TIME.
--- NOTE | 2025-04-02 07:20 | NUR ---
RECIEVED REPORT FROM OLEGARIO MARTINEZ. PT RESTING IN BED WITH EYES CLOSED, BREATHING EVEN AND UNLABORED. CALL LIGHT WITHIN REACH.
--- NOTE | 2025-04-02 07:51 | NUR ---
DISCHARGE REVIEW: CONTINUES WITH NEEDS FOR IV FLUIDS, IV PPI, LAB TRENDING AND MONITORING FOR SIGNS OF FURTHER BLEEDING. PLANS TO DC TO HOME IN 1-2 MORE DAYS. ADD: 04/03-04/04/25 EGD COMPLETED 04/01/25, OOZING ULCER WITH HEMOSPRAY APPLIED.
--- NOTE | 2025-04-02 08:07 | NUR ---
PATIENT IS IN HER BED AT THIS TIME, RADIO REPAIRER DOMESTIC EMPTIED HER OSTOMY BAG, AND PUREWICK CANISTER. TIDYED HER ROOM, GOT SOME FRESH MOUTH SWABS FOR HER SINCE SHE IS NPO. PATIENT IS VERY TIRED AND HAS NOT MUCH STRENGTH, RN NOTIFIED. CALL LIGHT WITH IN REACH AND NOTHING ELSE NEEDED AT THIS TIME.
--- NOTE | 2025-04-02 08:32 | NUR ---
PATIENT IS IN HER BED AT THIS TIME, RESIDENT MANAGER ASSITED IN REPOSITING PATIENT, CHARTED VITALS AND I&O'S, AND GOT HER A WALKER TO HELP HER GET TO THE RESTROOM WHEN SHE NEEDS TO GO NOW THAT THE PUREWICK IS OUT. CALL LIGHT WITH IN REACH AND NOTHING ELSE NEEDED AT THIS TIME.
--- NOTE | 2025-04-02 09:45 | NUR ---
PATIENT WAS IN HER BED AT THIS TIME, SHE NEEDED ASSISTANCE TO THE BATHROOM, LICENSED MASSAGE THERAPIST ASSISTED PATIENT BACK TO HER CHAIR AT THIS TIME, CHANGED HER BEDDING, CALL LIGHT WTIH IN REACH AND NOTHING ELSE NEEDED AT THIS TIME.
--- NOTE | 2025-04-02 10:13 | NUR ---
Spoke with Bernice and her daughter. Pt is tired and pale today. She wants to go home. She will go home alone as daughter lives in [place] and son is a truck car and bus cleaner and gone 3 days a week. We discussed pt buying a [employer] or hiring a cg. Daughter feels this would be best. Pt states she will consider. Brochures for [facility] and Family resources to hire a cg. They deny other needs from CM.
--- NOTE | 2025-04-02 14:42 | NUR ---
PATIENT IN BED AT THIS TIME. THIS PRODUCT MARKETING INTERN ASSISTED PATIENT TO BATHROOM AND THEN BACK TO BED. CALL LIGHT WITHIN REACH, NO FURTHER NEEDS AT THIS TIME.
--- NOTE | 2025-04-02 15:41 | NUR ---
PATIENT IS IN BED RESTING AT THIS TIME, CHERIE OFFERED A SHOWER TO PATIENT, SHE REFUSED AND SAID SHE IS NOT FEELING UP TO IT TODAY BUT THAT SHE WOULD PREFER ONE TOMORROW WHEN SHE HOPEFULLY HAS MORE ENERGY. CHERIE GOT A SPRITE, ICE, AND NOTIFIED OLEGARIO OCONNELL THAT SHE IS HAVING SOME PAIN IN HER SHOULDER AGAIN. CALL LIGHT WITH IN REACH AND NOTHING ELSE NEEDED AT THIS TIME.
[2025-04-02 16:46] LABS: CALCIUM IONIZED PH 7.4 1.24 mmol/L (1.09-1.30); CALCIUM,IONIZED SERUM 1.18 mmol/L (1.09-1.30)
--- NOTE | 2025-04-02 17:39 | NUR ---
PATIENT IS IN BED RESTING, HORTICULTURE WORKER CHARTED VITALS AND I&O'S, CALL LIGHT WITH IN REACH AND NOTHING ELSE NEEDED AT THIS TIME.
--- NOTE | 2025-04-02 18:17 | NUR ---
PT UP TO RESTROOM WITH GAMMA RAY OPERATOR, REQUESTS NEXT AVAILABLE PAIN MEDICATION FOR PAIN IN R SHOULDER. PT STATES NO OTHER NEEDS AT THIS TIME, CALL LIGHT WITHIN REACH.
--- NOTE | 2025-04-02 18:22 | NUR ---
PATIENT IN BED AT THIS TIME. DIAMOND SETTER ASSISTED PATIENT TO BATHROOM AND THEN BACK TO BED. CALL LIGHT WITHIN REACH, NO FURTHER NEEDS AT THIS TIME.
--- NOTE | 2025-04-02 19:57 | NUR ---
PATIENT IN BED WITH HOB RAISED, EYES OPEN, CHEST RISE EQUAL AND UNLABORED. PATIENT DENIES CONCERNS AT THIS TIME. CPOX IN PLACE, IS IN REACH OF PATIENT. PERSONAL BELONGINGS AND CALL LIGHT IN REACH OF PATIENT.
--- NOTE | 2025-04-02 21:20 | NUR ---
PATIENT IN BED WITH HOB RAISED. EYES OPEN, CHEST RISE EQUAL AND UNLABORED, IV FLUID INFUSING WITHOUT DIFFICULTY. VITAL SIGNS COMPLETE, SCHEDULED MEDICATIONS ADMINISTERED, ASSESSMENT COMPLETE. PATIENT DENIES CONCERNS AT THIS TIME. CPOX IN PLACE. PATIENT CONTINUES TO REFUSE USE OF SCDS. CALL LIGHT, IS, AND PERSONAL BELONGINGS IN REACH OF PATIENT.
--- NOTE | 2025-04-02 22:00 | NUR ---
PATIENT IN BED WITH HOB RAISED, EYES OPEN, CHEST RISE EQUAL AND UNLABORED. PATIENT CONTINUES TO REFUSE USE OF SCDS. CALL LIGHT, PERSONAL BELONGINGS, AND IS IN REACH OF PATIENT. IV FLUID INFUSING WITHOUT DIFFICULTY. CPOX IN PLACE. PATIENT DENIES FURTHER CONCERNS AT THIS TIME.
--- NOTE | 2025-04-02 22:35 | NUR ---
PATENT ASSISTED TO RESTROOM, PATIENT URINATED AND COLOSTOMY EMPTIED. IV FLUID INFUSING WITHOUT DIFFICULTY, CPOX IN PLACE. PATIENT ABLE TO STAND STRAIGHT AND WALK TO RESTROOM WITH USE OF FOUR WHEEL WALKER. PATIENT REPORTS 10/10 RIGHT SHOULDER PAIN. PRN PAIN MEDICATION ADMINISTERED. PATIENT DENIES FURTHER CONCERNS AT THIS TIME. IS, PERSONAL BELONGINGS, AND CALL LIGHT IN REACH OF PATIENT.
--- NOTE | 2025-04-02 23:55 | NUR ---
PATIENT CPOX AT 88, ALARMING. PATIENT IN BED WITH HOB RAISED, EYES CLOSED, CHEST RISE EQUAL AND UNLABORED. PATIENT DENIES SHORTNESS OF BREATH WHEN ASKED. 2L NASAL CANULA O2 PLACED. PATIENT 95% ON 2L OF O2. PATIENT DENIES CONCERNS AT THIS TIME. IS, PERSONAL BELONGINGS, AND CALL LIGHT IN REACH. CPOX IN PLACE, IV FLUIDS INFUSING WITHOUT DIFFICULTY.
[2025-04-03] VITALS (14 sets, daily range): BP systolic 144–168; BP diastolic 46–95
--- NOTE | 2025-04-03 01:46 | NUR ---
PATIENT IN BED WITH HOB RAISED, EYES CLOSED, CHEST RISE EQUAL AND UNLABORED. IV FLUIDS INFUSING WIHTOUT DIFFICULTY. CPOX IN PLACE. OXYGEN SATURATION 97% ON 2L O2. IS, PERSONAL BELONGINGS, AND CALL LIGHT IN REACH OF PATIENT. NO APPARENT NEEDS NOTED AT THIS TIME.
--- NOTE | 2025-04-03 02:58 | NUR ---
PATIENT IN BED WITH HOB RAISED, EYES CLOSED, CHEST RISE EQUAL AND UNLABORED. CPOX IN PLACE, SATURATION 95% ON RA. IV FLUIDS INFUSING WITHOUT DIFFICULTY. IS, PERSONAL BELONGINGS, AND CALL LIGHT IN REACH. NO APPARENT NEEDS NOTED AT THIS TIME.
--- NOTE | 2025-04-03 03:57 | NUR ---
PATIENT IN BED WITH HOB RAISED, EYES OPEN, CHEST RISE EQUAL AND UNLABORED. IV FLUID INFUSING WITHOUT DIFFICULTY. CPOX IN PLACE. IS, PERSONAL BELONGINGS, AND CALL LIGHT IN REACH OF PATIENT. NO APPARENT NEEDS NOTED AT THIS TIME.
[2025-04-03 05:15] LABS: BASOPHILS 0.1 % (0.1-1.2); EOSINOPHILS 3.0 % (0.7-5.8); LYMPHOCYTES 12.4 % (19.3-51.7); MCH 29.8 PG (25.6-32.2); MCHC 32.8 g/dL (32.2-35.5); MCV 90.7 fL (79.4-94.8); MONOCYTES 6.7 % (4.7-12.5); NEUTROPHILS 77.4 % (34.0-71.1); RBC 2.15 M/uL (3.93-5.22)
[2025-04-03 05:30] LABS: ALT (SGPT) 14.0 U/L (14-59); AST (SGOT) 17.0 U/L (15-37); GLOMERULAR FILTRATION RATE,EST 58.0 mL/min (>60); PROTEIN, TOTAL 4.3 g/dL (6.4-8.2); UREA NITROGEN 14.0 mg/dL (7-18)
--- NOTE | 2025-04-03 05:46 | NUR ---
PLACED CALL TO MD, REVIEWED PATIENT'S MORNING LAB RESULTS. PER MD HE WILL PUT IN ORDERS FOR PT TO RETURN TO NPO AND RECEIVE BLOOD TRANSFUSION. ORDERS PLACED BY AND NOTED IN CHART BY THIS RN AND MICHELLE MELVIN.
--- NOTE | 2025-04-03 06:10 | NUR ---
PATIENT IN BED WITH HOB RAISED, EYES CLOSED, CHEST RISE EQUAL AND UNLABORED. IV FLUID INFUSING WITHOUT DIFFICULTY. CPOX IN PLACE. PATIENT CONTINUES TO REFUSE SCD USE. CALL LIGHT, PERSONAL BELONGINGS, AND IS IN REACH OF PATIENT. NO APPARENT NEEDS NOTED AT THIS TIME.
--- NOTE | 2025-04-03 06:25 | NUR ---
VITAL SIGNS OBTAINED, BLOOD TRANSFUSION STARTED. 15 MINUTE POST TRANSFUSION VITAL SIGNS COMPLETE. PATIENT WITHOUT REACTIONS OR CHANGES NOTED AT THIS TIME. BLOOD INFUSING AT 125 ML/HR. FLUIDS REMOVED FROM BEDSIDE AND PATIENT EDUCATED ON NPO STATUS. PATIENT REPORTS 8/10 SHOULDER PAIN THAT HAS BEEN ONGOING, PRN MEDICATION ADMINISTERED. OSTOMY BAG EMPTIED. PATIENT WITHOUT FURTHER CONCERNS AT THIS TIME. IV FLUID AND BLOOD INFUSING WITHOUT DIFFICULTY. PATIENT BELONGINGS AND CALL LIGHT IN REACH.
--- NOTE | 2025-04-03 07:15 | NUR ---
RECIEVED REPORT FROM OLEGARIO MARTINEZ. PT AWAKE IN BED, RECIEVING BLOOD TRANSFUSION, DENIES ANY S/SX OF TRANSFUSION REACTION AT THIS TIME. PT DENIES ANY CURRENT NEEDS, CALL LIGHT WITHIN REACH.
[2025-04-03] MEDS ORDERED: POTASSIUM CHLORIDE 40 MEQ,LIDOCAINE HCL 1% 40 MG in DEXTROSE 5% 250 ML IV ONE (09:00)
--- NOTE | 2025-04-03 09:22 | NUR ---
BLOOD TRANSFUSION OF FIRST UNIT COMPLETE, VSS. SECOND UNIT OF PRBCs STARTED BY THIS RN AND JONATHAN DENSON RN. LUNG SOUNDS REMAIN CLEAR. PT DENIES ANY S/SX OF TRANSFUSION REACTION. NEW TRANSFUSION STARTED AT 75ML/HR IN R FOREARM IV D/T L AC IV STARTING TO LEAK AFTER OTHER TRANSFUSION COMPLETE. L AC IV DC'D WNL. THIS RN AT THE BEDSIDE FOR FIRST 15 MINUTES OF TRANSFUSION.
--- NOTE | 2025-04-03 09:45 | NUR ---
NEW IV ATTEMPTED X2, UNSUCCESSFUL FROM THIS RN. DR. PETERS TO BEDSIDE TO DISCUSS POC. PT SON TO BEDSIDE. PT DENIES S/SX OF BLOOD TRANSFUSION REACTION AFTER FIRST 15 MINUTES OF SECOND UNIT OF BLOOD, VSS. BLOOD TRANSFUSION RATE INCREASED TO 175ML/HR. PT STATES NO FURTHER NEEDS AT THIS TIME, CALL LIGHT WITHIN REACH.
[2025-04-03] MEDS ORDERED: LIDOCAINE HCL 4% 1 EACH PATCH TD SCH (10:30)
--- NOTE | 2025-04-03 11:40 | NUR ---
PT RESTING IN BED VISITING WITH FAMILY. DENIES ANY S/S INFUSION REACTION. CALL LIGHT WITHIN REACH.
--- NOTE | 2025-04-03 12:25 | NUR ---
PT SITTING UP IN BED, STATES PAIN IS "FEELING BETTER" AND RATES PAIN 7/10 IN R SHOULDER. FAMILY AT THE BEDSIDE. PT STATES NO CURRENT NEEDS, CALL LIGHT WITHIN REACH.
--- NOTE | 2025-04-03 13:00 | NUR ---
PT STATES SHE VOIDED IN BED, LINENS, GOWN, AND DEPENDS CHANGED BY THIS RN. BED BATH AND JASMEET CARE COMPLETED. BARRIER CREAM APPLIED UNDER BREASTS D/T PT REQUEST. PT STATES NO FURTHER NEEDS AT THIS TIME. PT INSTRUCTED TO CALL TO USE RESTROOM PUREWICK WAS REMOVED AT THIS TIME WELL, PT VERBALIZES UNDERSTANDING. CALL LIGHT WITHIN REACH.
[2025-04-03 13:06] LABS: BASOPHILS 0.2 % (0.1-1.2); EOSINOPHILS 2.5 % (0.7-5.8); LYMPHOCYTES 9.7 % (19.3-51.7); MCH 29.2 PG (25.6-32.2); MCHC 32.6 g/dL (32.2-35.5); MCV 89.7 fL (79.4-94.8); MONOCYTES 5.5 % (4.7-12.5); NEUTROPHILS 81.4 % (34.0-71.1); RBC 3.39 M/uL (3.93-5.22)
--- NOTE | 2025-04-03 15:15 | NUR ---
PT UP TO RESTROOM WITH FWW AND SBA. PT BACK TO BED, STATES NO FURTHER NEEDS AT THIS TIME. CALL LIGHT WITHIN REACH.
--- NOTE | 2025-04-03 20:18 | NUR ---
BALAJI IS CURRENTLY ON ROOM AIR. SHE STATES THAT SHE DOES NOT USE HOME OXYGEN, CPAP/BIPAP, OR INHALED RESPIRATORY MEDICATIONS. SHE INQUIIRED TO WHY SHE WAS PLACED ON OXYGEN LAST N IGHT. RT TOLD HER THAT THE RN PLACED HER ON OXYGEN BECAUSE SHE HAD DESATURATIONS.
--- NOTE | 2025-04-03 20:36 | NUR ---
Pt A&O to all, pleasant and cooperative. On room air, CPOX on at bedside, joshua sob with exertion. Up to BRP, voided, L Ileostomy emptied by self. contineus to have black colored stool. Cooperative with assessment and vitals. lungs clear bilat, NPO does own oral care. abd soft, tender. LA SL patent. IVF infusing RW patent. Lidocaine patch removed from R shoulder. Medicated with Morphine 2mg IV c/o shoulder pain. Pure wick applied at thist kay. No c/o n/v
[2025-04-03] MEDS ORDERED: LIDOCAINE PATCH REMOVAL 1 EA TD SCH (21:00)
[2025-04-03 21:32] LABS: BASOPHILS 0.2 % (0.1-1.2); EOSINOPHILS 2.1 % (0.7-5.8); LYMPHOCYTES 9.4 % (19.3-51.7); MCH 29.4 PG (25.6-32.2); MCHC 33.3 g/dL (32.2-35.5); MCV 88.1 fL (79.4-94.8); MONOCYTES 7.1 % (4.7-12.5); NEUTROPHILS 80.7 % (34.0-71.1); RBC 3.20 M/uL (3.93-5.22)
[2025-04-03 22:09] LABS: ABO A; RH POSITIVE
[2025-04-03 22:10] LABS: ANTIBODY SCREEN NEGATIVE
--- NOTE | 2025-04-03 22:17 | NUR ---
RESTING, ROOM AIR, CPOX ON AT BEDSIDE. IVF INFUSING W/O PROBLEMS. SCDS AT BEDSIDE
--- NOTE | 2025-04-03 23:30 | NUR ---
C/O 10/10 R SHOULDER PAIN, MEDICATED WITH MORPHINE 2MG IV. REPOSITIONS SELF IN BED, ON ROOM AIR, CPOX ON AT BEDSIDE, IVF INFUSING W/O PROBLEMS
[2025-04-04] VITALS (10 sets, daily range): BP systolic 132–162; BP diastolic 52–80
--- NOTE | 2025-04-04 02:10 | NUR ---
C/O 8/10 R BACK SHOULDER PAIN. MEDICATED WITH MORPHINE 2MG IV AND WARM PAD TO AREA GIVEN, AWAKE, REPOSITIONS SELF IN BED. TOOK O2 OFF, CPOX IN PLACEAT BEDSIDE, PURE WICK IN PLACE DRAINING CLEAR YELLOW URINE. STOMY PATENT. COOPERATIVE WITH ASSESSMENT
--- NOTE | 2025-04-04 05:33 | NUR ---
On room air, cpox 90-92%, medicated with Dilaudid 2mg IV R shoulder pain, warm pads applied to r shoulder and neck area. O2 2LNC applied at this time. pure wick hcakusumed, Pt had QS clear yellow urine plus she was incontinent of large amount of urine soaking attends, chux and linen. Whole bed linen and gown changed. Does own oral care. mimimum of water left in cap for sponges moisture at this time. Reasoning behind it explained to pt as pt is sucking water aout of the sponges. Instructed to just barely moisten sponges to do own oral care. irritable but stated understanding. Helped reposition self. NPO, SCD's off at this time. barrier lotion applied to under breast area and L abd pannus area.
[2025-04-04 05:36] LABS: BASOPHILS 0.4 % (0.1-1.2); EOSINOPHILS 2.6 % (0.7-5.8); LYMPHOCYTES 11.0 % (19.3-51.7); MCH 29.7 PG (25.6-32.2); MCHC 33.3 g/dL (32.2-35.5); MCV 89.0 fL (79.4-94.8); MONOCYTES 7.8 % (4.7-12.5); NEUTROPHILS 77.6 % (34.0-71.1); RBC 3.47 M/uL (3.93-5.22)
[2025-04-04 05:52] LABS: ALT (SGPT) 14.0 U/L (14-59); AST (SGOT) 17.0 U/L (15-37); GLOMERULAR FILTRATION RATE,EST 55.0 mL/min (>60); PROTEIN, TOTAL 5.3 g/dL (6.4-8.2); UREA NITROGEN 7.0 mg/dL (7-18)
--- NOTE | 2025-04-04 07:15 | NUR ---
RECIEVED REPORT FROM OLEGARIO ALARCON. PT RESTING IN BED WITH EYES CLOSED. CALL LIGHT WITHIN REACH.
--- NOTE | 2025-04-04 08:42 | NUR ---
PT IN DARK ROOM, ON NPO STATUS, IS USING SPONGE FOR MOUTH. PT DID NOT WANT BLIND OPEN. CALL LIGHT WITHIN REACH, NO VISITORS, TV NOT ON.
--- NOTE | 2025-04-04 08:54 | NUR ---
PT COMPLAINED OF TENDONITIS IN NECK AND SHOULDER, CHRONIC. COMPLETED AM AND ORAL CARE - PT LET ME OPEN THE BLINDS A LITTLE. CLEANED UP ROOM, EMPTIED PUREWICK. CALL LIGHT WITHIN REACH. GOT OT WARM PACK REQUESTED, REPORTED NEEDING NOTHING ELSE AT THIS TIME.
[2025-04-04] MEDS ORDERED: POTASSIUM CHLORIDE 40 MEQ,LIDOCAINE HCL 1% 40 MG in DEXTROSE 5% 250 ML IV ONE (09:00)
[2025-04-04] MEDS ORDERED: AMLODIPINE BESYLATE 10 MG TAB PO SCH (10:14)
--- NOTE | 2025-04-04 10:55 | NUR ---
PT LYING IN BED VISITING WITH FAMILY, STATES NO CURRENT NEEDS, CALL LIGHT WITHIN REACH.
--- NOTE | 2025-04-04 13:35 | NUR ---
GOT PT FRESH ICE WATER. PT HAS TWO VISITORS IN ROOM.
--- NOTE | 2025-04-04 14:22 | NUR ---
PT CONTINUES TO HAVE PAIN ON R SIDE OF NECK WHICH PT REPORTS IS CHRONIC. PAIN MEDICATION GIVEN PER PT REQUEST. PT ASSISTED WITH REPOSITIONING BY FAMILY AT BEDSIDE. PT STATES NO FURTHER NEEDS AT THIS TIME, CALL LIGHT WITHIN REACH.
[2025-04-04] MEDS ORDERED: MORPHINE SULFATE 15 MG TAB PO PRN (16:15)
--- NOTE | 2025-04-04 17:50 | NUR ---
PT LYING IN BED, STATES PAIN IS 8/10 IN R SHOULDER. NEW HEAT PACK PROVIDED. PT STATES NO FURTHER NEEDS AT THIS TIME, CALL LIGHT WITHIN REACH.
[2025-04-04 18:10] LABS: BASOPHILS 0.3 % (0.1-1.2); EOSINOPHILS 2.2 % (0.7-5.8); LYMPHOCYTES 11.1 % (19.3-51.7); MCH 29.1 PG (25.6-32.2); MCHC 32.6 g/dL (32.2-35.5); MCV 89.2 fL (79.4-94.8); MONOCYTES 8.7 % (4.7-12.5); NEUTROPHILS 77.3 % (34.0-71.1); RBC 3.51 M/uL (3.93-5.22)
--- NOTE | 2025-04-04 18:20 | NUR ---
PT RESTING IN BED, REPORTS HER NECK IS STILL HURTING - SHE REPORTS CHRONIC TENDONITIS. CALL LIGHT WITHIN REACH AND FRESH ICE WATER NEXT TO BED. PT REPORTS NOT NEEDING ANYTHING ELSE AT THIS TIME.
--- NOTE | 2025-04-04 18:23 | NUR ---
PT REFUSED TO HAVE A SHOWER OR BED BATH TODAY. SHE PERFORMED ORAL CARE AND AM CARE THIS MORNING - BUT SAID SHE DID NOT NEED A SHOWER TODAY.
--- NOTE | 2025-04-04 20:08 | NUR ---
BALAJI IS IN AND OUT OF SLEEP ON ROOM AIR.
--- NOTE | 2025-04-04 21:06 | NUR ---
AWAKE, ON ROOM AIR, CPOX ON AT BEDSIDE, COOPERATIVE WITH VITALS AND ASSESSMENTS. ABD SOFT, JOSUE, C/O ABD PAIN 9/10, MEDICATED WITH 7.5 PO MORPHINE. WARM PADS TO NECK AND R SHOULDER APPLIED, TURNED AND REPOSITIONED. BARRIER CREAM TO UNDER BREASTS AND ABD PANNUS. PURE WICK IN PLACE, DRAINING CLEAR YELLOW URINE. L STOMA WITH DARK BROWN/BLACK MUCH IMPROVED COLORING COLORED SEMILIQUID BM. PT DOES OWN CARES. SCDS OFF AT HER REQUEST AT THIS TIME. HELPS WITH TURNING AND REPOSITIONING. ALERT AND ORIENTED, PLEASANT AND COOPERATIVE
--- NOTE | 2025-04-04 22:15 | NUR ---
RESTING, EYES CLOSED, ON ROOM AIR,CPOX ON AT BEDSIDE, PURE WICK IN PLACE. NO S/SX DISTRESS
--- NOTE | 2025-04-04 23:54 | NUR ---
PT AWAKE, ON ROOM AIR, CPOX ON AT BEDSIDE. C/O R SHOULDER PAIN, WARM PADS TO AREA. MEDICATED WITH MORPHINE 7.5MG PO 05/19 PAIN. PURE WICK CHANGED, DRAINING CLEAR YELLOW URINE. L STOMA PATENT STOOL VERY DARK BROWN COLORED MUCHIMPROVED COLOR FROM YESTERDY. DECLINES SCD. REPOSITIONED, TOLERATED WELL
[2025-04-05] VITALS (9 sets, daily range): BP systolic 128–158; BP diastolic 46–83
--- NOTE | 2025-04-05 01:55 | NUR ---
RESTING, EYES CLOSED, ON ROOM AIR, CPOX AT BEDSIDE, NO S/SX DISTRESS AT THIS TIME. PURE WICK IN PLACE, DRAINING CLEAR YELLOW URINE
--- NOTE | 2025-04-05 03:49 | NUR ---
Resting, eyes closed, on room air, cpox at bedside. pure wick in place. No s/sx distress
--- NOTE | 2025-04-05 04:17 | NUR ---
used call light, c/o 10/10 R shoulder and neck area pain. warm pads to both areas and medicated with Morphine 7.5mg po. pure wick in place. stoma patentnt darining dark brown colored strong smelling bm. Helped with repositioning. attends dry. tolerating liquids well, no n/c
[2025-04-05 05:24] LABS: BASOPHILS 0.3 % (0.1-1.2); EOSINOPHILS 2.3 % (0.7-5.8); LYMPHOCYTES 9.7 % (19.3-51.7); MCH 29.3 PG (25.6-32.2); MCHC 33.0 g/dL (32.2-35.5); MCV 88.6 fL (79.4-94.8); MONOCYTES 10.9 % (4.7-12.5); NEUTROPHILS 76.1 % (34.0-71.1); RBC 3.52 M/uL (3.93-5.22)
[2025-04-05 05:40] LABS: ALT (SGPT) 9.0 U/L (14-59); AST (SGOT) 13.0 U/L (15-37); GLOMERULAR FILTRATION RATE,EST 50.0 mL/min (>60); PROTEIN, TOTAL 5.4 g/dL (6.4-8.2); UREA NITROGEN 9.0 mg/dL (7-18)
--- NOTE | 2025-04-05 07:51 | NUR ---
PT CALLED FOR PAIN MED, RATES 20\10. ADMINISTERED PRN MED AND SCHED MEDS. GOT PT UP TO CHAIR. ICE AND LIDO PATCH APPLIED TO SITE.
[2025-04-05] MEDS ORDERED: MAGNESIUM SULFATE 2 GM/50 ML BAG IV SCH (09:00)
[2025-04-05] MEDS ORDERED: POTASSIUM CHLORIDE 40 MEQ,LIDOCAINE HCL 1% 40 MG in DEXTROSE 5% 250 ML IV ONE (09:00)
--- NOTE | 2025-04-05 09:07 | NUR ---
INTO SEE PATIENT. MEDICARE LETTER REVIEWED. PATIENT TO GO HOME WITH FAMILY AT TIME OF DISCHARGE. NO QUESTIONS.
--- NOTE | 2025-04-05 09:57 | NUR ---
CALL TO PCP, DR. BRUSH, IN [place]. THEY ARE WORKING ON A REFERRAL FOR RIGHT SHOULDER INJECTIONS TO BE FOLLOWED BY PHYSICAL THERAPY.
--- NOTE | 2025-04-05 10:11 | NUR ---
HOURLY ROUNDING. PATIENT RANG HER CALL LIGHT SHE MENTIONED SHE WANTED A P[AIN PILL THEN THAT SHE NEEDED TO USE THE RESTROOM. BED SIDE CAMMODE WAS PROVIDED FOR HER. PATIENT WAS A ONE PERSON SBA TO THE BATHROOM. NO FURTHER REQUEST FROM PATIENT. NURSE HAS BEEN NOTIFIED IF THE PAIN PILL
--- NOTE | 2025-04-05 11:29 | NUR ---
CHERIE JOHNSON ASSISTED PT BACK TO BED AND REFILLED ICE CUP. PROPPED ON PILLOWS PER PT REQUEST.
--- NOTE | 2025-04-05 12:57 | NUR ---
PT IN BED RESTING WITH EYES CLOSED. CALL LIGHT WITHIN REACH.
--- NOTE | 2025-04-05 14:38 | NUR ---
PATIENT DID HER ORAL CARE AND WASH HER FACE WITH OCCUPATIONAL THERAPY. ALSO GAVE HER FRESH ICE WATER AND NEW ICE PACK.
--- NOTE | 2025-04-05 15:04 | NUR ---
INTO TALK TO PATIENT. TALKED WITH PATIENT ABOUT THERAPY RECCOMENDATION. PATIENT STATES "I DO NOT WANT TO GO TO SNF. I LIVE WITH MY SON AND MY DAUGHTER IS COMING TO STAY FOR A WEEK. ALSO I HAVE A GRANDDAUGHTER THAT CAN HELP.
--- NOTE | 2025-04-05 15:12 | NUR ---
ROUNDED ON PT. ELECTROCARDIOGRAPHIC TECHNICIAN IN ROOM. DENIES CONCERNS ATT.
--- NOTE | 2025-04-05 16:05 | PATH ---
[facility] [address] [place], [place] [address] Signed SPECIMEN(S): A ILEOSTOMY MASS SPECIMEN SOURCE: A. ILEOSTOMY MASS CLINICAL HISTORY: GI bleed A) mass FINAL PATHOLOGIC DIAGNOSIS: Mass from ileostomy site: - Granulation tissue. - Ulcerated skin and intestinal ileostomy mucosa with submucosal fibrosis and reactive change. - No malignancy or viral cytopathic effect identified. [facility] MICROSCOPIC EXAMINATION: Histologic sections of all submitted blocks are examined by light microscopy. These findings, together with the gross examination, support the pathologic diagnosis. GROSS DESCRIPTION: The specimen, labeled and designated "Clark, ileostomy mass," is received in formalin and consists of two oh soft tissue fragments, ranging from 0.5-0.9 cm. Entirely submitted in (A1). AB (under the direct supervision of a pathologist) The Gross Description was prepared using a voice recognition system. The report was reviewed for accuracy; however, sound-alike word errors, addition and/or deletions may occur. If there is any question about this report, please contact Client Services. ADDITIONAL NOTES: Immunohistochemical and/or in situ hybridization studies if performed in this case included appropriate positive controls that reacted as expected. This test was developed and its performance characteristics determined by [facility]. It has not been cleared or approved by the U.S. Food and Drug Administration. The FDA has determined that such clearance or approval is not necessary. This test is used for clinical purposes. It should not be regarded as investigational or for research. [facility] is certified under the PATIENT NAME: BALAJI CLARK PATHOLOGY DATE OF : 42 REPORT #: [id number] PHYSICIAN: MARA PORTER PCP: VICKI BRUSH DO REPORT IS CONFIDENTIAL AND NOT TO BE RELEASED WITHOUT AUTHORIZATION [address] [address] Signed Clinical Laboratory Improvement Amendments of 1988 (CLIA) as qualified to perform high complexity clinical laboratory testing. PERFORMING LABORATORY: Technical component was performed by [facility], [address] [place] [id number] (CLIA# [id number]). Professional interpretation was performed by [facility], [address] [place] [id number] (CLIA#: [id number]). Diagnostician: Vicki Welch MD Pathologist Electronically Signed 04/05/2025 Copies: ~ PATIENT NAME: BALAJI CLARK PATHOLOGY DATE OF : 42 REPORT #: [id number] PHYSICIAN: MARA PORTER PCP: VICKI BRUSH DO REPORT IS CONFIDENTIAL AND NOT TO BE RELEASED WITHOUT AUTHORIZATION
--- NOTE | 2025-04-05 16:32 | NUR ---
Imaging staff transported pt to imaging via wheelchair
--- NOTE | 2025-04-05 16:44 | NUR ---
PT BACK FROM IMAGING AND INTO CHAIR.
[2025-04-05] MEDS ORDERED: OXYCODONE HCL 5 MG TAB PO PRN (18:00)
--- NOTE | 2025-04-05 18:06 | NUR ---
PT REMAINS IN CHAIR. ATE SOME OF DINNER. ASKED FOR PAIN MED, RATES 10/10 IN NECK. STATES THAT THE SHOULDER IS NOW OK AND ITS HER NECK NOW.
--- NOTE | 2025-04-05 19:32 | NUR ---
pt RESTING IN THE CHAIR. BOARD UPDATED. pt DENIES ANY OTHER NEEDS AT THIS TIME. CALL LIGHT WITHIN REACH.
[2025-04-05] MEDS ORDERED: DICLOFENAC SOD 75 MG TABEC PO SCH (21:00)
--- NOTE | 2025-04-05 21:30 | NUR ---
ASSESSMENT AND VITAL SIGNS DONE. SCHEDULED MEDS ADMINISTERED. IV ASSESSED, WNL. ICE PACK ON SHOULDER. pt DENIES ANY OTHER NEEDS AT THIS TIME. CALL LIGHT WITHIN REACH.
--- NOTE | 2025-04-05 23:45 | NUR ---
pt RESTING IN THE BED WITH EYES CLOSED. RR EVEN AND UNLABORED. CALL LIGHT WITHIN REACH.
[2025-04-06] VITALS (7 sets, daily range): BP systolic 123–135; BP diastolic 46–57
--- NOTE | 2025-04-06 00:54 | NUR ---
pt CALLED AND C/O 06/18 PAIN. PRN PAIN MEDS ADMINISTERED. pt DENIEES ANY OTHER NEEDS AT THIS TIME. CALL LIGHT WITHIN REACH.
--- NOTE | 2025-04-06 03:34 | NUR ---
pt RESTING IN THE BED WITH EYES CLOSED. RR EVEN AND UNLABORED. CALL LIGHT WITHIN REACH.
--- NOTE | 2025-04-06 06:04 | NUR ---
pt ASSESSMENT DONE. pt C/O 04/18 PAIN. PRN PAIN MEDS ADMINISTERED. pt BOWEL TONES ACTIVE. BROWN STOOL OUT OF OSTOMY. pt DENIES ANY OTHER NEEDS AT THIS TIME. CALL LIGHT WITHIN REACH.
[2025-04-06 08:38] LABS: BASOPHILS 0.4 % (0.1-1.2); EOSINOPHILS 1.9 % (0.7-5.8); LYMPHOCYTES 9.0 % (19.3-51.7); MCH 29.3 PG (25.6-32.2); MCHC 32.7 g/dL (32.2-35.5); MCV 89.6 fL (79.4-94.8); MONOCYTES 9.9 % (4.7-12.5); NEUTROPHILS 77.9 % (34.0-71.1); RBC 3.45 M/uL (3.93-5.22)
[2025-04-06 08:48] LABS: GLOMERULAR FILTRATION RATE,EST 36.0 mL/min (>60); UREA NITROGEN 14.0 mg/dL (7-18)
--- NOTE | 2025-04-06 08:53 | NUR ---
PO MEDICATIONS HELD FOR NAUSEA, ZOFRAN RECEIVED, SEE EMAR.
[2025-04-06] MEDS ORDERED: PANTOPRAZOLE SODIUM 40 MG TABEC PO SCH (09:00)
--- NOTE | 2025-04-06 10:21 | NUR ---
PT CONTINUES TO REPORT NAUSEA. PO MEDICATIONS CONTINUE TO BE HELD. COMPAZINE RECEIVED FOR NAUSEA, SEE EMAR.
[2025-04-06] MEDS ORDERED: LORazepam 2 MG/ML VIAL IV ONE (10:45)
--- NOTE | 2025-04-06 10:45 | NUR ---
Spoke with Bernice, her daughter Mary, and OMKAR. Pt has changed her mind and is now open to placement to a SNF. Family very concerned as they do not feel pt can stay alone. We discussed SNFs in our area and Mary states she received the list of SNFs. Pt would like [facility] the [facility], or [facility].Let them know I will send the chart. Daughter also stating pt will have an MRI for her shoulder and her shoulder injected. We discussed these are Out Pt. procedures and may not be covered as pt is an IP and her Dx is not related to shoulder pain. I updated Dr. Squires and these were cancelled. I called [facility] and . They will not have beds until the end of the week and possibly Saturday. I called and spoke with [place] at the [facility] may have a bed open tomorrow. I called Syeda at the Ortho clinic and updated MRI was cancelled. She has an opening on Saturday and will see the pt in the office to evaluate for steroid injection. Per Syeda, they do not need a referral from the PCP as pt has Medicare. She will see Bernice on Saturday at 1030.
[2025-04-06] MEDS ORDERED: METOCLOPRAMIDE HCL 10 MG/2 ML SDV IV PRN ×2 (11:00→15:00)
--- NOTE | 2025-04-06 11:07 | NUR ---
DR. GOMEZ NOTIFIED OF IRREGULAR HEART RATE AND PT REPORT OF HX OF A-FIB. NO NEW ORDERS RECEIVED.
--- NOTE | 2025-04-06 11:17 | NUR ---
PT REPORTS NAUSEA HAS RESOLVED. PT EATS YOGURT AND MILK, TOLERATES THIS WELL. AM PO MEDICATIONS RECEIVED. PHYSICAL THERAPY IN ROOM TO WORK WITH PT.
--- NOTE | 2025-04-06 12:15 | NUR ---
PT SITS UP IN RECLINER, EATS LUNCH. NO REQUESTS AT THIS TIME.
--- NOTE | 2025-04-06 13:15 | NUR ---
Received a call from Taya at [facility]. They will have a bed open tomorrow and will accept this pt at 1 pm. I updated pt will need to return to the Ortho clinic for a shoulder injection on Fri. They cannot accept this pt if she has injections as the injections will be billed to [facility]. I will call Syeda at the Ortho office and attempt to reschedule after the pt discharges or from SNF or maybe on the way to the SNF. Message left for Syeda. Spoke with pt and family they are all in agreement for pt to go the [facility]. Pt would really like to get her shoulder injected as her pain meds cause her to be nauseated.
[2025-04-06] MEDS ORDERED: SODIUM CHLORIDE 0.9% 1,000 ML IV SCH (13:30)
[2025-04-06] MEDS ORDERED: LACTATED RINGER'S 1,000 ML IV SCH (13:30)
[2025-04-06] MEDS ORDERED: DICLOFENAC 1% TOPICAL GEL TOP PRN (14:00)
--- NOTE | 2025-04-06 14:26 | NUR ---
Called and spoke with Syeda at the Ortho office. She will fit pt in between 9:30 and 10:00 tomorrow to elvaluate and inject this pts shoulder. Family updated and Pt will dc tomorrow for injection and then on to [facility] by 1pm for admission. Dr. Squires and charge nurse aware.
--- NOTE | 2025-04-06 15:20 | NUR ---
Chart faxed to Syeda at the ortho office for pt to establish care tomorrow.
--- NOTE | 2025-04-06 15:32 | NUR ---
WHEN I WENT IN THERE TO DO PATIENT'S TWO O CLOCK VITALS. PATIENT SAID SHE BRUSHED HER TEETH AND WASHED HER FACE. PATIENT ALSO HAD HER FAMILY IN THE ROOM.
[2025-04-06 15:41] LABS: BLOOD/HGB, URINE NEGATIVE (Negative); KETONE, URINE NEGATIVE (Negative); LEUK ESTERASE, URINE SMALL (negative); NITRITE, URINE NEGATIVE (negative)
[2025-04-06 15:46] LABS: BACTERIA, URINE RARE /hpf (negative); CASTS, URINE NONE SEEN \\lpf; CRYSTALS, URINE NONE SEEN (0-1+); EPITHELIAL CELLS, URINE SQUAMOUS 2+ /lpf (0-1+); REFLEX CULTURE, URINE No (No)
[2025-04-06 15:49] LABS: SODIUM, RANDOM URINE 5.0 mmol/L (NOT ESTABLISHED)
--- NOTE | 2025-04-06 17:52 | NUR ---
COMPAZINE RECEIVED FOR NAUSEA TO ASSIST WITH PO PAIN MEDICATION OXYCODONE, SEE EMAR.
--- NOTE | 2025-04-06 19:05 | NUR ---
PATIENT IN BED WITH HOB RAISED. IV FLUID INFUSING WITHOUT DIFFICULTY. PATIENT DENIES CONCERNS AT THIS TIME. CALL LIGHT AND PERSONAL BELONGINGS IN REACH OF PATIENT.
--- NOTE | 2025-04-06 21:30 | NUR ---
PATIENT IN BED WITH HOB RAISED. EYES OPEN, CHEST RISE EQUAL AND UNLABORED. ASSESSMENT COMPLETED AND SCHEDULED MEDICATIONS ADMINISTERED. ASSISTED PATIENT TO BATHROOM WITHOUT ISSUE. PATIENT BACK TO BED WITH HOB RAISED. CALL LIGHT, IS, AND PERSONAL BELONGINGS IN REACH. CPOX IN PLACE, PATIENT REFUSES USE OF SCDS, EDUCATION PROVIDED. IV FLUID INFUSING WITHOUT DIFFICULTY. ICE PACK PROVIDED FOR RIGHT SHOULDER PAIN.
--- NOTE | 2025-04-06 23:17 | NUR ---
PATIENT IN BED WITH HOB RAISED, EYES CLOSED, CHEST RISE EQUAL AND UNLABORED. IS, PERSONAL BELONGINGS, AND CALL LIGHT IN REACH. IV FLUID INFUSING WITHOUT DIFFICULTY, CPOX IN PLACE. NO APPARENT NEEDS NOTED AT THIS TIME.
[2025-04-07] VITALS (10 sets, daily range): BP systolic 106–152; BP diastolic 55–69
--- NOTE | 2025-04-07 01:34 | NUR ---
PATIENT CALL LIGHT ANSWERED. PATIENT IN BED WITH HOB RAISED, EYES OPEN, CHEST RISE EQUAL AND UNLABORED. PATIENT REPORTS NEED TO USE THE BATHROOM. ASSISTED PATIENT TO BATHROOM, PATIENT VOIDED, ASSISTED PATIENT BACK TO BED. PATIENT REPORTS 8/10 NECK PAIN, PRN PAIN MEDICATION ADMINISTERED ORDERED. NEW ICE PACK PROVIDED TO PATIENT. PATIENT DENIES FURTHER CONCERNS AT THIS TIME. CALL LIGHT, IS, AND PERSONAL BELONGINGS IN REACH OF PATIENT. PATIENT CONTINUES TO REFUSE USE OF SCDS. CPOX IN PLACE. IV FLUIDS INFUSING WITHOUT DIFFICULTY.
--- NOTE | 2025-04-07 03:02 | NUR ---
PATIENT IN BED WITH HOB RAISED. EYES CLOSED, CHEST RISE EQUAL AND UNLABORED. IV FLUID INFUSING WITHOUT DIFFICULTY, CPOX IN PLACE. IS, PERSONAL BELONGINGS, AND CALL LIGHT IN REACH OF PATIENT.
--- NOTE | 2025-04-07 05:00 | NUR ---
PATIENT IN BED WITH HOB RAISED. ASSISTED PATIENT TO BATHROOM AND BACK TO BED. PATIENT REPORTS NAUSEA AND PAIN, PRN MEDICATIONS ADMINISTERED. PATIENT DENIES FURTHER CONCERNS AT THIS TIME. CALL LIGHT, IS AND PERSONAL BELONGINGS IN REACH OF PATIENT.
[2025-04-07 05:34] LABS: BASOPHILS 0.3 % (0.1-1.2); EOSINOPHILS 2.3 % (0.7-5.8); LYMPHOCYTES 9.8 % (19.3-51.7); MCH 28.7 PG (25.6-32.2); MCHC 32.6 g/dL (32.2-35.5); MCV 87.9 fL (79.4-94.8); MONOCYTES 8.4 % (4.7-12.5); NEUTROPHILS 78.4 % (34.0-71.1); RBC 3.21 M/uL (3.93-5.22)
[2025-04-07 05:48] LABS: GLOMERULAR FILTRATION RATE,EST 33.0 mL/min (>60); UREA NITROGEN 23.0 mg/dL (7-18)
--- NOTE | 2025-04-07 07:39 | NUR ---
RECIEVED REPORT FROM OLEGARIO BUENROSTRO. PT AWAKE IN BED, AMBULATES TO RESTROOM WITH FWW AND SBA. PT BACK TO BED AFTER RESTROOM. PT STATES NO FURTHER NEEDS AT THIS TIME. CALL LIGHT WITHIN REACH.
--- NOTE | 2025-04-07 09:00 | NUR ---
Spoke with Taya from [facility] the [facility]. Let her know, I will send orders as soon as possible. Dr. Squires stopped by my office and pt will not dc to SNF today. Pt became dizzy when up and there is concern there could be further bleeding. I contacted Syeda at the Ortho office and Taya. Plan for dc tomorrow to [facility] and pt will go to the ortho office to be worked in. Family updated.
--- NOTE | 2025-04-07 09:33 | NUR ---
PATIENT BRUSHED HER TEETH AND WASHED HER FACE. DISCHARGE VITALS ARE DONE. PATIENT IS DRESSED. PACKED UP.
--- NOTE | 2025-04-07 11:04 | NUR ---
VISITED DURING SPIRITUAL CARE ROUNDS. PT IN OVERALL GOOD SPIRITS; NO IMMEDIATE NEEDS. CREATIVE ART DIRECTOR PROVIDED SUPPORTIVE PRESENCE, HOSPITALITY, PRAYER. PT EXPRESSED GRATITUDE.
[2025-04-07] MEDS ORDERED: SUCRALFATE 1 GM TAB PO SCH (13:00)
--- NOTE | 2025-04-07 13:06 | NUR ---
PT CHANGED INTO GOWN, PERSONAL BELONGINGS PLACED IN CLOSET. PT STATES R SHOULDER PAIN IS 10/10, PRN PAIN MEDICATION AND ICE PACK GIVEN PER PT REQUEST. PT UP TO RESTROOM WITH SBA AND FWW. PT BACK TO BED. PT STATES NO FURTHER NEEDS AT THIS TIME, CALL LIGHT WITHIN REACH.
--- NOTE | 2025-04-07 14:30 | NUR ---
PATIENT HELPED ME GIVE HER A BED BATH. NEW SOCKS AND GOWN. ALSO SHAMPOOED HER HAIR AND COMBED IT. PATIENT DID HER JASMEET CARE.
--- NOTE | 2025-04-07 15:56 | NUR ---
PT RESTING IN BED WITH HOB ELEVATED, CONVERSING WITH TWO VISITORS. NO REQUESTS. CALL LIGHT IN REACH.
--- NOTE | 2025-04-07 18:25 | NUR ---
GOT PATIENT A GLASS OF ICE WATER. BEFORE PATIENT WENT BACK TO BED CHANGED PATIENT'S BED LINENS. PATIENT IS NOW IN BED. ALSO GOT HER TWO WARM BLANKETS.
--- NOTE | 2025-04-07 19:05 | NUR ---
REPORT RECEIVED FROM KOURTNEY MELVIN. pt RESTING IN THE BED. ICE PACK PROVIDED. BOARD UPDATED. pt DENIES ANY OTHER NEEDS AT THIS TIME. CALL LIGHT WITHIN REACH.
--- NOTE | 2025-04-07 20:35 | NUR ---
ASSESSMENT AND VITAL SIGNS DONE. pt BACK TO BED AFTER USING THE BR. pt SBA WITH FWW. SCHEDULED MEDS ADMINISTERED. IV ASSESSED, WNL. IVF INFUSING PER ORDER. pt C/O 05/19 PAIN. PRN PAIN MEDS ADMINISTERED. ILIOSTOMY HAS DARK BROWN STOOL IN BAG. BOWEL TONES ACTIVE. pt REFUSED SCD'S. pt DENIES ANY OTHER NEEDS AT THIS TIME. CALL LIGHT WITHIN REACH.
--- NOTE | 2025-04-07 21:43 | NUR ---
CALL LIGHT ANSWERED. IV PUMP ALARMING. IV SITE ASSESSED, LEAKING OUT SIDE AT CATHETER HUB. IV SITE DC'D WNL. PRIMARY RN NOW IN ROOM.
--- NOTE | 2025-04-07 22:00 | NUR ---
SCHEDULED MEDS ADMINISTERED. NEW IV PALCED. ICE WATER REFRESHED. IVF INFUSING PER ORDER. ICE PACK ON THE BACK OF pt NECK. pt DENIES ANY OTHER NEEDS AT THIS TIME. CALL LIGHT WITHIN REACH.
--- NOTE | 2025-04-07 23:50 | NUR ---
pt RESTING IN THE BED WITH EYES CLOSED. RR EVEN AND UNLABORED. CALL LIGHT WITHIN REACH.
--- NOTE | 2025-04-08 00:15 | NUR ---
pt CALLED AND C/O 06/18 PAIN. PRN PAIN MEDS ADMINISTERED. pt UP TO THE BR WITH FWW, SBA. pt BACK TO BED. pt DENIES ANY OTHER NEEDS AT THIS TIME. CALL LIGHT WITHIN REACH.
--- NOTE | 2025-04-08 02:22 | NUR ---
pt RESTING IN THE BED WITH EYES CLOSED. RR EVEN AND UNLABORED. CALL LIGHT WITHIN REACH.
--- NOTE | 2025-04-08 02:51 | NUR ---
PRN MEDS ADMINISTERED. pt DENIES ANY OTHER NEEDS AT THIS TIME. CALL LIGHT WITHIN REACH.
--- NOTE | 2025-04-08 04:18 | NUR ---
pt RESTING IN THE BED WITH EYES CLOSED. RR EVEN AND UNLABORED. CALL LIGHT WITHIN REACH.
[2025-04-08 05:26] VITALS: BP 162/67
[2025-04-08 05:31] LABS: MCH 29.3 PG (25.6-32.2); MCHC 32.3 g/dL (32.2-35.5); MCV 90.9 fL (79.4-94.8); RBC 3.07 M/uL (3.93-5.22)
[2025-04-08 05:45] LABS: GLOMERULAR FILTRATION RATE,EST 38.0 mL/min (>60); UREA NITROGEN 19.0 mg/dL (7-18)
[2025-04-08 05:46] VITALS: BP 162/67
[2025-04-08 05:47] LABS: BANDS, MANUAL DIFF 1; EOSINOPHILS, MANUAL DIFF 3; LYMPHOCYTES, MANUAL DIFF 14; MONOCYTES, MANUAL DIFF 10; NEUTROPHILS, MANUAL DIFF 72
--- NOTE | 2025-04-08 06:07 | NUR ---
pt CALLED AND C/O 06/18 PAIN. PRN PAIN MEDS ADMINISTERED. PRN [place]SEA MEDS ADMINISTERED. pt DENIES ANY OTHER NEEDS AT THIS TIME. CALL LIGHT WITHIN REACH. pt UP TO THE BR WITH SBA VIA FWW. pt BACK TO BED.
--- NOTE | 2025-04-08 07:15 | NUR ---
RECIEVED REPORT FROM OLEGARIO BUENROSTRO. PT AWAKE IN BED, AMBULATES TO RESTROOM WITH SBA AND FWW. PT BACK TO BED, STATES NO FURTHER NEEDS AT THIS TIME. CALL LIGHT WITHIN REACH.
--- NOTE | 2025-04-08 07:30 | NUR ---
Sent clinicals and PT notes to Taya Nunes at [facility].
--- NOTE | 2025-04-08 09:00 | NUR ---
Updated Taya, pt will dc today. I updated the ortho office pt will dc to day and go to their office for her shoulder injection prior to going to the SNF.
[2025-04-08 09:12] VITALS: BP 136/74
--- NOTE | 2025-04-08 09:13 | NUR ---
PT RESTING IN BED, A VISITOR JUST ARRIVED. CAME IN TO DISCUSS DISCHARGE. PT USED THE BATHROOM, I HAD HER DO ORAL CARE, AND SHE BRUSHED HER HAIR AND CHANGED HER BRIEF. CALL LIGHT WITHIN REACH, PT REPORTS NEEDING NOTHING ELSE AT THIS TIME.
[2025-04-08] MEDS ORDERED: DICLOFENAC SODI50 GM TOP (09:32)
[2025-04-08] MEDS ORDERED: OXYCODONE HCL5 M1 PO (09:32)
[2025-04-08] MEDS ORDERED: SUCRALFATE1 GM PO (09:33)
[2025-04-08] MEDS ORDERED: PANTOPRAZOLE SO40 MG PO (09:33)
[2025-04-08] MEDS ORDERED: LIDOCAINE PAIN1 EACH TD (09:33)
[2025-04-08] MEDS ORDERED: REGLAN10 MG PO (09:34)
[2025-04-08 09:44] VITALS: BP 136/74
[2025-04-08 09:46] VITALS: BP 136/74
--- NOTE | 2025-04-08 10:00 | NUR ---
Orders faxed to Taya. Called and notified. Let her know the pt will go to ortho clinic first. Family have been reminded to arrive at the SNF no later than 1 pm.
--- NOTE | 2025-04-08 10:10 | NUR ---
PT DRESSED IN OWN CLOTHES. VSS. IV DC'D WNL. PT'S DAUGHTER AT THE BEDSIDE. DC PACKET AND EDUCATION GIVEN, PT AND DAUGHTER VERBALIZE UNDERSTANDING. DC PACKET FOR SNF GIVEN TO PT'S DAUGHTER, INSTRUCTED TO GIVE TO STAFF AT SNF, PT'S DAUGHTER VERBALIZES UNDERSTANDING. PT AND DAUGHTER STATE ALL QUESTIONS HAVE BEEN ANSWERED AT THIS TIME. PT AMBULATES TO WHEELCHAIR WITH SBA AND FWW. PT LEAVING WITH ALL PERSONAL BELONGINGS. PT WHEELED TO FRONT OF BUILDING BY NURSING PERSONEL.
== END 2025-04-08 10:10 | DRG 378 ==
LOC: ED 13:09 → MS 17:20
PROVIDERS: Emergency Medicine; Student in an Organized Health Care Education/Training Program; Surgery; ADMIT Family Medicine; ATTEND Family Medicine
PROC: XW0G886 Introduction of Mineral-based Topical Hemostatic Agent into Upper GI, Via Natural or Artificial Opening Endoscopic, New Technology Group 6 (ICD-10-PCS; 2025-04-01)
PROC: 0W3P8ZZ Control Bleeding in Gastrointestinal Tract, Via Natural or Artificial Opening Endoscopic (ICD-10-PCS; 2025-04-01)
PROC: 0DJ08ZZ Inspection of Upper Intestinal Tract, Via Natural or Artificial Opening Endoscopic (ICD-10-PCS; 2025-04-01)
PROC: 30233N1 Transfusion of Nonautologous Red Blood Cells into Peripheral Vein, Percutaneous Approach (ICD-10-PCS; principal; 2025-04-01 11:30)
DX: K26.4 Chronic or unspecified duodenal ulcer with hemorrhage (principal); D62 Acute posthemorrhagic anemia; N17.9 Acute kidney failure, unspecified; I10 Essential (primary) hypertension; E78.00 Pure hypercholesterolemia, unspecified; M25.511 Pain in right shoulder; E87.6 Hypokalemia; K25.9 Gastric ulcer, unspecified as acute or chronic, without hemorrhage or perforation; E83.42 Hypomagnesemia; K44.9 Diaphragmatic hernia without obstruction or gangrene; M77.8 Other enthesopathies, not elsewhere classified; Z90.710 Acquired absence of both cervix and uterus; Z79.891 Long term (current) use of opiate analgesic; Z79.899 Other long term (current) drug therapy; Z90.49 Acquired absence of other specified parts of digestive tract; Z88.5 Allergy status to narcotic agent
CPT/HCPCS: 00731; 36415; 36430; 72040; 80048; 80053; 81001; 82570; 83735; 84100; 84300; 85025; 85060; 85610; 85730; 86850; 86900; 86901; 86922; 88305; 94762; 94799; 96374; 96375; 97161; 97165; 97166; 97530; 97535; 99285-25; A9270; J0780; J2003; J2060; J2270; J2371; J2405; J2470; J2704; J3475; J3480; J3490; J7030; J7040; J7060; J7121; P9016

== ENCOUNTER 2025-07-07 09:20 | Day surgery (SDC) | payer MEDICARE, BC ==
[~2025-07-07] VITALS: Ht 157.5 cm; Wt 59.0 kg
[~2025-07-07 09:20] MED LIST changes: +DICLOFENAC SODI50 GM TOP; +IBLOOD GLUCOSE TEST STRIP 1 EA TEST VI PRN; +LACTATED RINGER'S 1,000 ML IV SCH; +LIDOCAINE HCL 1% 5 ML SDV INJ ONE; +LIDOCAINE PAIN1 EACH TD; +LO-DOSE ASPIRIN81 MG PO; +OXYCODONE HCL5 M1 PO; +PANTOPRAZOLE SO40 MG PO; +REGLAN10 MG PO; +SUCRALFATE1 GM PO
[2025-07-07 10:01] VITALS: BP 152/89
[2025-07-07] MEDS ORDERED: LIDOCAINE HCL 2% 5 ML SDV ONE (12:16)
[2025-07-07 12:46] VITALS: BP 135/72
--- NOTE | 2025-07-07 12:54 | NUR ---
07/07/25 1254 Irasema Germain 1219- PT ARRIVES TO DAY SURGERY AWAKE WITH EYES OPEN AND TALKING WITH RN. BREATHING IS EVEN AND UNLABORED. MONITORS PUT IN PLACE. BEDSIDE REPORT RECEIVED. QUESTIONS AND CONCERNS ANSWERED. VSS. PT DENIES PAIN AND NAUSEA. PT IS ON 4L OF O2 VIA NC. 1223- PT IS ABLE TO MAINTAIN O2 SATS. O2 TURNED DOWN TO 2L VIA NC AT THIS TIME.
--- NOTE | 2025-07-08 08:08 | OR ---
[facility] [address] [place], [place] [address] Signed DATE OF OPERATION: 07/07/2025 SURGEON: Lucius Kinney DO PREOPERATIVE DIAGNOSIS: History of gastric ulcers with epigastric pain. POSTOPERATIVE DIAGNOSES: History of gastric ulcers with epigastric pain with gastric polyp and partially healed and some nonhealing gastric and duodenal ulcerations. PROCEDURE PERFORMED: Esophagogastroduodenoscopy with biopsy of the gastric polyp. ANESTHESIA: IV sedation. ESTIMATED BLOOD LOSS: None. DRAINS: None. COMPLICATIONS: None. DESCRIPTION OF PROCEDURE: The patient was brought to the GI lab, placed in supine position. After induction of IV sedation through preanesthetized oropharynx and a bite block, the Olympus video endoscope was then introduced into the mouth directed to the length of the mouth and into the distal esophagus. Some minimal esophagitis was noted. Scope was advanced into the stomach. Stomach was insufflated. Exploration was carried out. A small gastric polyps identified. Utilizing the cold biopsy forceps, specimen taken and the polyp was excised in its entirety, passed off the field for pathologic review. Further exploration and inspection of the antrum and distal body noted some healed and partially healed gastric ulceration. No bleeding was noted. No other erosions were appreciated. Scope was then brought back to and placed through the pylorus, and first and second portions of duodenum. Some healing and partially nonhealed duodenal ulcers were appreciated as well. No bleeding was noted. The scope was then brought back into the pylorus. The scope was retroflexed on itself and evidence of hiatal hernia was noted. Electronically Signed By: LUCIUS KINNEY DO 07/08/25 0808 PATIENT NAME: BALAJI CLARK OPERATIVE REPORT DATE OF : 42 REPORT #: [id number] PHYSICIAN: LUCIUS KINNEY DO PCP: JULIETTE HUMMEL MD REPORT IS CONFIDENTIAL AND NOT TO BE RELEASED WITHOUT AUTHORIZATION [facility] [address] [place], [place] [address], [place] [address] Signed The scope was then placed in neutral position. Stomach was decompressed. Scope was withdrawn. The patient tolerated the procedure well and to recovery room in satisfactory condition. DO ASHU Jones/HALLE /[id number] Copies: ~ Electronically Signed By: LUCIUS KINNEY DO 07/08/25 0808 PATIENT NAME: BALAJI CLARK OPERATIVE REPORT DATE OF : 42 REPORT #: [id number] PHYSICIAN: LUCIUS KINNEY DO PCP: JULIETTE HUMMEL MD REPORT IS CONFIDENTIAL AND NOT TO BE RELEASED WITHOUT AUTHORIZATION
--- NOTE | 2025-07-09 15:55 | PATH ---
[facility] [address] [place], [place] [address] Signed SPECIMEN(S): A GASTRIC POLYP SPECIMEN(S): B RANDOM STOMACH BIOPSY SPECIMEN SOURCE: A. GASTRIC POLYP B. RANDOM STOMACH BIOPSY CLINICAL HISTORY: History of gastric ulcer, duodenal ulcer, duodenal and gastric ulcers, gastric polyp FINAL PATHOLOGIC DIAGNOSIS: A. Gastric polyp: - Benign polypoid gastric mucosa, negative for pathologic inflammation or epithelial dysplasia. - Focal slight foveolar hyperplasia. B. Random stomach biopsy: - Fragment of benign glandular mucosa with gastric fundic and antral type epithelium with focal slight chronic inflammation. - Negative for evidence of Helicobacter organisms on routine HE-stained sections. - Focal foveolar hyperplasia. RUST MICROSCOPIC EXAMINATION: Histologic sections of all submitted blocks are examined by light microscopy. These findings, together with the gross examination, support the pathologic diagnosis. GROSS DESCRIPTION: A. The specimen, labeled and designated "Sarah, gastric polyp," is received in formalin and consists of one oh soft tissue fragment, 0.3 cm. Entirely submitted in (A1). B. The specimen, labeled and designated "Sarah, random stomach biopsy," is received in formalin and consists of one oh soft tissue fragment, 0.2 cm. Entirely submitted in (B1). VB (under the direct supervision of a pathologist) The Gross Description was prepared using a voice recognition system. The report was reviewed for accuracy; however, sound-alike word errors, addition and/or deletions may occur. If there is any question about this report, please contact Client Services. PATIENT NAME: BALAJI CLARK PATHOLOGY DATE OF : 42 REPORT #: [id number] PHYSICIAN: [employer] PCP: JULIETTE HUMMEL MD REPORT IS CONFIDENTIAL AND NOT TO BE RELEASED WITHOUT AUTHORIZATION [facility] [address] [place], [place] [address] Signed ADDITIONAL NOTES: Immunohistochemical and/or in situ hybridization studies if performed in this case included appropriate positive controls that reacted as expected. This test was developed and its performance characteristics determined by [facility]. It has not been cleared or approved by the U.S. Food and Drug Administration. The FDA has determined that such clearance or approval is not necessary. This test is used for clinical purposes. It should not be regarded as investigational or for research. [facility] is certified under the Clinical Laboratory Improvement Amendments of 1988 (CLIA) as qualified to perform high complexity clinical laboratory testing. PERFORMING LABORATORY: Technical component was performed by [facility], [address] [place] [id number] (CLIA# [id number]). Professional interpretation was performed by [facility] [place] - [address] [place] [id number] (CLIA#: [id number]). Diagnostician: Obie Obrien MD Pathologist Electronically Signed 07/09/2025 Copies: ~ PATIENT NAME: BALAJI CLARK PATHOLOGY DATE OF : 42 REPORT #: [id number] PHYSICIAN: MARA PORTER PCP: JULIETTE HUMMEL MD REPORT IS CONFIDENTIAL AND NOT TO BE RELEASED WITHOUT AUTHORIZATION
== END 2025-07-07 12:56 | disposition home or self-care (01) ==
LOC: DS 09:20
PROVIDERS: ATTEND Surgery
PROC: 0DB68ZX Excision of Stomach, Via Natural or Artificial Opening Endoscopic, Diagnostic (ICD-10-PCS; principal; 2025-07-07 12:15)
DX: K29.70 Gastritis, unspecified, without bleeding (principal); K31.7 Polyp of stomach and duodenum; K26.9 Duodenal ulcer, unspecified as acute or chronic, without hemorrhage or perforation; K20.90 Esophagitis, unspecified without bleeding; K25.9 Gastric ulcer, unspecified as acute or chronic, without hemorrhage or perforation
CPT/HCPCS: 00813; J2003; J2704; J7121